=== PATIENT | female | born 1965 | race Caucasian/White ===

== ENCOUNTER 2018-04-16 22:46 | Inpatient (IN) | payer OTHER ==
[2018-04-16 23:35] LABS: ADD MAN DIFF? NO
[2018-04-16 23:39] LABS: WHITE BLOOD COUNT 16.5 10^3/ul (4.8-10.8)
[2018-04-16 23:39] LABS: BASOPHIL # 0.1 10^3/ul (0.0-0.1); BASOPHILS % 0.4 % (0.0-2.0); EOSINOPHILS % 0.1 % (0.0-7.0); HEMATOCRIT 29.6 % (37.0-47.0); HEMOGLOBIN 9.6 g/dl (12.0-16.0); LYMPHOCYTES # 1.3 10^3/ul (0.8-2.9); LYMPHOCYTES % 7.6 % (15.0-51.0); MEAN CORPUSCULAR HEMOGLOBIN 32.4 pg (29.0-33.0); MEAN CORPUSCULAR HGB CONC 32.4 g/dl (32.0-37.0); MEAN PLATELET VOLUME 9.1 fl (7.4-10.4); MONOCYTE # 0.9 10^3/ul (0.3-0.9); MONOCYTES % 5.5 % (0.0-11.0); NEUTROPHIL # 14.1 10^3/ul (1.6-7.5); NEUTROPHILS % 85.5 % (39.0-77.0); PLATELET COUNT 226 10^3/UL (140-415); RED BLOOD COUNT 2.96 10^6/ul (4.20-5.40); RED CELL DISTRIBUTION WIDTH 16.6 % (11.5-14.5)
[2018-04-17] LABS: ALANINE AMINOTRANSFERASE 25 IU/L (13-69); ALBUMIN 3.7 g/dl (3.3-4.9); ALBUMIN/GLOBULIN RATIO 1.15; ALKALINE PHOSPHATASE 92 IU/L (42-121); ANION GAP 15 (5-13); ASPARTATE AMINO TRANSFERASE 32 IU/L (15-46); BILIRUBIN,INDIRECT 0.3 mg/dl (0-1.1); BILIRUBIN,TOTAL 0.3 mg/dl (0.2-1.3); BLOOD UREA NITROGEN 31 mg/dl (7-20); CALCIUM 8.6 mg/dl (8.4-10.2); CARBON DIOXIDE 20 mmol/L (21-31); CHLORIDE 104 mmol/L (97-110); CREATININE 1.31 mg/dl (0.44-1.00); Estimated GFR 42 mL/min (>60); GLUCOSE 110 mg/dl (70-220); LIPASE 31 U/L (23-300); POTASSIUM 5.7 mmol/L (3.5-5.1); SODIUM 139 mmol/L (135-144); TOTAL PROTEIN 6.9 g/dl (6.1-8.1)
[2018-04-17] MEDS: ONDANSETRON 4 MG INJ IV (00:14)
[2018-04-17] MEDS: SOD CHLORIDE 0.9% 1,000 ML IV ×3 (00:14→18:25)
[2018-04-17] MEDS: morphine 2 MG INJ IV (00:14)
[2018-04-17 00:58] LABS: ADD UMIC NO; UR ASCORBIC ACID NEGATIVE (NEGATIVE); UR BILIRUBIN (Dip) NEGATIVE (NEGATIVE); UR BLOOD (Dip) NEGATIVE (NEGATIVE); UR CLARITY CLEAR (CLEAR); UR COLOR YELLOW (YELLOW); UR GLUCOSE (Dip) NEGATIVE (NEGATIVE); UR KETONES (Dip) NEGATIVE (NEGATIVE); UR LEUKOCYTE ESTERASE (Dip) NEGATIVE Leu/ul (NEGATIVE); UR NITRITE (Dip) NEGATIVE (NEGATIVE); UR SPECIFIC GRAVITY (Dip) 1.017 (1.003-1.030); UR TOTAL PROTEIN (Dip) NEGATIVE (NEGATIVE); UR UROBILINOGEN (Dip) NEGATIVE (NEGATIVE)
[2018-04-17 05:06] LABS: ACETAMINOPHEN < 10.0 ug/ml (10.0-30.0)
[2018-04-17 05:06] LABS: ETHANOL < 10.0 mg/dl (0-0); SALICYLATE < 1.0 mg/dl (5.0-30.0)
[2018-04-17] MEDS: LORAZEPAM 2 MG INJ IM (06:04)
[2018-04-17] MEDS ORDERED: ACETAMINOPHEN 325 MG TAB PO (06:30)
[2018-04-17] MEDS ORDERED: NACL 0.9% 3 ML SYG IV (06:30)
[2018-04-17 06:32] LABS: AMPHETAMINE/METHAMPHETAMINE Negative (NEGATIVE); BARBITURATES Negative (NEGATIVE); BENZODIAZEPINES Negative (NEGATIVE); CANNABINOIDS Negative (NEGATIVE); COCAINE Negative (NEGATIVE); OPIATES Negative (NEGATIVE)
[2018-04-17] MEDS: PANTOPRAZOLE 40 MG INJ IV (06:46)
[2018-04-17] MEDS: RISPERIDONE 0.25 MG TAB PO ×2 (06:48→22:08)
[2018-04-17 12:47] LABS: ANION GAP 10 (5-13); BLOOD UREA NITROGEN 30 mg/dl (7-20); CALCIUM 8.2 mg/dl (8.4-10.2); CARBON DIOXIDE 21 mmol/L (21-31); CHLORIDE 107 mmol/L (97-110); CREATININE 1.27 mg/dl (0.44-1.00); Estimated GFR 44 mL/min (>60); GLUCOSE 78 mg/dl (70-220); POTASSIUM 4.5 mmol/L (3.5-5.1); SODIUM 138 mmol/L (135-144)
[2018-04-17] MEDS: HYDROCORTISONE 5 MG TAB PO (21:00)
[2018-04-17] MEDS: FERROUS SULFATE (EC) 325 MG TAB PO (22:08)
[2018-04-17] MEDS: LACOSAMIDE (100 MG/10 ML PO SYR) PO (22:08)
[2018-04-17] MEDS: METOPROLOL 25 MG TAB PO (22:09)
[2018-04-17] MEDS: HEPARIN 5,000 UNIT/1 ML VIAL SC (22:13)
[2018-04-18] MEDS: PANTOPRAZOLE (EC) 40 MG TAB PO (06:01)
[2018-04-18] MEDS: LEVOTHYROXINE 50 MCG TAB PO (06:01)
[2018-04-18 06:30] LABS: ADD MAN DIFF? NO
[2018-04-18 06:34] LABS: BASOPHIL # 0.1 10^3/ul (0.0-0.1); BASOPHILS % 0.5 % (0.0-2.0); EOSINOPHILS # 0.1 10^3/ul (0.0-0.5); EOSINOPHILS % 0.4 % (0.0-7.0); HEMATOCRIT 26.3 % (37.0-47.0); HEMOGLOBIN 8.7 g/dl (12.0-16.0); LYMPHOCYTES # 3.1 10^3/ul (0.8-2.9); LYMPHOCYTES % 22.3 % (15.0-51.0); MEAN CORPUSCULAR HEMOGLOBIN 31.8 pg (29.0-33.0); MEAN CORPUSCULAR HGB CONC 33.1 g/dl (32.0-37.0); MEAN PLATELET VOLUME 9.3 fl (7.4-10.4); MONOCYTE # 1.2 10^3/ul (0.3-0.9); MONOCYTES % 8.3 % (0.0-11.0); NEUTROPHIL # 9.3 10^3/ul (1.6-7.5); PLATELET COUNT 249 10^3/UL (140-415); RED BLOOD COUNT 2.74 10^6/ul (4.20-5.40); RED CELL DISTRIBUTION WIDTH 16.4 % (11.5-14.5)
[2018-04-18 06:34] LABS: WHITE BLOOD COUNT 13.9 10^3/ul (4.8-10.8)
[2018-04-18] MEDS: SOD CHLORIDE 0.9% 1,000 ML IV (07:05)
[2018-04-18 07:15] LABS: ALANINE AMINOTRANSFERASE 32 IU/L (13-69); ALBUMIN 3.2 g/dl (3.3-4.9); ALKALINE PHOSPHATASE 106 IU/L (42-121); ANION GAP 14 (5-13); ASPARTATE AMINO TRANSFERASE 23 IU/L (15-46); BILIRUBIN,INDIRECT 0.1 mg/dl (0-1.1); BILIRUBIN,TOTAL 0.1 mg/dl (0.2-1.3); BLOOD UREA NITROGEN 27 mg/dl (7-20); CALCIUM 8.2 mg/dl (8.4-10.2); CARBON DIOXIDE 17 mmol/L (21-31); CHLORIDE 110 mmol/L (97-110); CHOL/HDL RATIO 2.5 RATIO; CHOLESTEROL 88 mg/dl (100-200); CREATININE 1.28 mg/dl (0.44-1.00); Estimated GFR 43 mL/min (>60); GLUCOSE 92 mg/dl (70-220); HDL CHOLESTEROL 34 mg/dl (37-92); LDL CHOLESTEROL,CALCULATED 23 mg/dl; MAGNESIUM 1.1 mg/dl (1.7-2.5); POTASSIUM 4.1 mmol/L (3.5-5.1); SODIUM 141 mmol/L (135-144); TOTAL PROTEIN 6.1 g/dl (6.1-8.1); TRIGLYCERIDES 156 mg/dl (0-149)
[2018-04-18 07:44] LABS: HEMOGLOBIN A1C 5.1 % (0-5.9)
[2018-04-18 07:51] LABS: HIV 1&2 ANTIBODY NEGATIVE (NEGATIVE)
[2018-04-18] MEDS: NIFEdipine (XL) 60 MG TAB PO (08:58)
[2018-04-18] MEDS: RISPERIDONE 0.25 MG TAB PO ×2 (08:59→21:00)
[2018-04-18] MEDS: FERROUS SULFATE (EC) 325 MG TAB PO ×3 (08:59→21:00)
[2018-04-18] MEDS: HYDROCORTISONE 5 MG TAB PO ×3 (08:59→21:00)
[2018-04-18] MEDS: CHOLECALCIFEROL 1,000 UNIT TAB PO (08:59)
[2018-04-18] MEDS: MULTIVITAMINS THERAPEUTIC TAB PO (08:59)
[2018-04-18] MEDS: METOPROLOL 25 MG TAB PO ×2 (08:59→21:01)
[2018-04-18] MEDS: LACOSAMIDE (100 MG/10 ML PO SYR) PO ×2 (09:00→21:01)
[2018-04-18] MEDS: ATORVASTATIN 40 MG TAB PO (09:00)
[2018-04-18] MEDS: LIDOCAINE 5% PATCH TD (09:00)
[2018-04-18] MEDS: HEPARIN 5,000 UNIT/1 ML VIAL SC ×2 (09:13→21:09)
[2018-04-18] MEDS: MAGNESIUM SULFATE 3 GM in DEXTROSE 5% 100 ML IVPB (12:00)
[2018-04-18] MEDS ORDERED: HYDROCORTISONE 5 MG TAB PO (14:00)
[2018-04-18] MEDS: LACTATED RINGER'S 500 ML IV (14:00)
[2018-04-18 14:21] LABS: IRON 30 ug/dl (35-150)
[2018-04-18 14:30] LABS: % IRON SATURATION 11 % SAT (22-52); TOTAL IRON BINDING CAPACITY 273 ug/dl (241-421)
[2018-04-18 14:39] LABS: FREE T4 (FREE THYROXINE) 1.81 ng/dl (0.64-1.79)
[2018-04-18 14:40] LABS: FREE T3 3.12 pg/ml (2.77-5.27)
[2018-04-18 16:23] LABS: RAPID PLASMA REAGIN NONREACTIVE (NR)
[2018-04-18] MEDS ORDERED: hydrALAzine 20 MG INJ IV (16:30)
[2018-04-18] MEDS: MAGNESIUM OXIDE 400 MG TAB PO ×2 (17:38→21:00)
[2018-04-18 19:46] LABS: ADD UMIC YES; UR ASCORBIC ACID NEGATIVE (NEGATIVE); UR BACTERIA FEW /HPF (NONE SEEN); UR BILIRUBIN (Dip) NEGATIVE (NEGATIVE); UR BLOOD (Dip) 1+ mg/dL (NEGATIVE); UR CLARITY SLIGHTLY CLOUDY (CLEAR); UR COLOR YELLOW (YELLOW); UR GLUCOSE (Dip) NEGATIVE (NEGATIVE); UR KETONES (Dip) NEGATIVE (NEGATIVE); UR LEUKOCYTE ESTERASE (Dip) 1+ Leu/ul (NEGATIVE); UR NITRITE (Dip) NEGATIVE (NEGATIVE); UR RBC 1 /HPF (0-5); UR SPECIFIC GRAVITY (Dip) 1.008 (1.003-1.030); UR TOTAL PROTEIN (Dip) NEGATIVE (NEGATIVE); UR UROBILINOGEN (Dip) NEGATIVE (NEGATIVE); UR WBC 22 /HPF (0-5)
[2018-04-19] MEDS: PANTOPRAZOLE (EC) 40 MG TAB PO (05:23)
[2018-04-19 06:29] LABS: MAGNESIUM 1.3 mg/dl (1.7-2.5)
[2018-04-19 06:31] LABS: ANION GAP 14 (5-13); BLOOD UREA NITROGEN 28 mg/dl (7-20); CARBON DIOXIDE 18 mmol/L (21-31); CHLORIDE 112 mmol/L (97-110); CREATININE 1.35 mg/dl (0.44-1.00); Estimated GFR 41 mL/min (>60); GLUCOSE 97 mg/dl (70-220); POTASSIUM 4.5 mmol/L (3.5-5.1); SODIUM 144 mmol/L (135-144)
[2018-04-19] MEDS: LEVOTHYROXINE 50 MCG TAB PO (07:38)
[2018-04-19] MEDS: LIDOCAINE 5% PATCH TD (09:00)
[2018-04-19] MEDS: HEPARIN 5,000 UNIT/1 ML VIAL SC ×2 (09:00→20:45)
[2018-04-19] MEDS: ATORVASTATIN 40 MG TAB PO (09:09)
[2018-04-19] MEDS: HYDROCORTISONE 5 MG TAB PO ×3 (09:10→20:32)
[2018-04-19] MEDS: FERROUS SULFATE (EC) 325 MG TAB PO ×3 (09:10→20:32)
[2018-04-19] MEDS: RISPERIDONE 0.25 MG TAB PO ×2 (09:10→20:37)
[2018-04-19] MEDS: MAGNESIUM OXIDE 400 MG TAB PO ×2 (09:10→20:32)
[2018-04-19] MEDS: CHOLECALCIFEROL 1,000 UNIT TAB PO (09:10)
[2018-04-19] MEDS: MULTIVITAMINS THERAPEUTIC TAB PO (09:10)
[2018-04-19] MEDS: NIFEdipine (XL) 60 MG TAB PO (09:10)
[2018-04-19] MEDS: METOPROLOL 25 MG TAB PO ×2 (09:11→20:38)
[2018-04-19] MEDS: LACOSAMIDE (100 MG/10 ML PO SYR) PO ×2 (09:11→20:33)
[2018-04-19 12:36] LABS: INR 0.97; PARTIAL THROMBOPLASTIN TIME 34.2 Sec (23.0-35.0)
[2018-04-19 22:46] LABS: SITE Left Upper Forearm
[2018-04-20] MEDS: PANTOPRAZOLE (EC) 40 MG TAB PO (06:07)
[2018-04-20 06:09] LABS: ADD MAN DIFF? NO
[2018-04-20 06:15] LABS: WHITE BLOOD COUNT 11.2 10^3/ul (4.8-10.8)
[2018-04-20 06:15] LABS: BASOPHIL # 0.1 10^3/ul (0.0-0.1); BASOPHILS % 0.5 % (0.0-2.0); EOSINOPHILS # 0.1 10^3/ul (0.0-0.5); EOSINOPHILS % 0.6 % (0.0-7.0); HEMATOCRIT 29.2 % (37.0-47.0); HEMOGLOBIN 9.5 g/dl (12.0-16.0); LYMPHOCYTES # 2.1 10^3/ul (0.8-2.9); LYMPHOCYTES % 18.9 % (15.0-51.0); MEAN CORPUSCULAR HEMOGLOBIN 31.6 pg (29.0-33.0); MEAN CORPUSCULAR HGB CONC 32.5 g/dl (32.0-37.0); MEAN PLATELET VOLUME 9.4 fl (7.4-10.4); MONOCYTE # 1.2 10^3/ul (0.3-0.9); MONOCYTES % 10.5 % (0.0-11.0); NEUTROPHIL # 7.4 10^3/ul (1.6-7.5); NEUTROPHILS % 66.4 % (39.0-77.0); PLATELET COUNT 296 10^3/UL (140-415); RED BLOOD COUNT 3.01 10^6/ul (4.20-5.40); RED CELL DISTRIBUTION WIDTH 15.9 % (11.5-14.5)
[2018-04-20 06:52] LABS: ALANINE AMINOTRANSFERASE 23 IU/L (13-69); ALBUMIN 3.5 g/dl (3.3-4.9); ALBUMIN/GLOBULIN RATIO 1.12; ALKALINE PHOSPHATASE 113 IU/L (42-121); ANION GAP 17 (5-13); ASPARTATE AMINO TRANSFERASE 21 IU/L (15-46); BLOOD UREA NITROGEN 26 mg/dl (7-20); CALCIUM 8.7 mg/dl (8.4-10.2); CARBON DIOXIDE 18 mmol/L (21-31); CHLORIDE 109 mmol/L (97-110); CREATININE 1.48 mg/dl (0.44-1.00); Estimated GFR 37 mL/min (>60); GLUCOSE 97 mg/dl (70-220); POTASSIUM 4.5 mmol/L (3.5-5.1); SODIUM 144 mmol/L (135-144); TOTAL PROTEIN 6.6 g/dl (6.1-8.1)
[2018-04-20] MEDS: HEPARIN 5,000 UNIT/1 ML VIAL SC ×2 (08:49→21:33)
[2018-04-20] MEDS: LIDOCAINE 5% PATCH TD (09:00)
[2018-04-20] MEDS: HYDROCORTISONE 5 MG TAB PO ×3 (09:07→21:09)
[2018-04-20] MEDS: FERROUS SULFATE (EC) 325 MG TAB PO ×3 (09:07→21:05)
[2018-04-20] MEDS: RISPERIDONE 0.25 MG TAB PO ×2 (09:07→21:05)
[2018-04-20] MEDS: CHOLECALCIFEROL 1,000 UNIT TAB PO (09:08)
[2018-04-20] MEDS: LEVOTHYROXINE 50 MCG TAB PO (09:08)
[2018-04-20] MEDS: MULTIVITAMINS THERAPEUTIC TAB PO (09:08)
[2018-04-20] MEDS: ATORVASTATIN 40 MG TAB PO (09:08)
[2018-04-20] MEDS: LACOSAMIDE (100 MG/10 ML PO SYR) PO ×2 (09:08→21:06)
[2018-04-20] MEDS: NIFEdipine (XL) 60 MG TAB PO (09:09)
[2018-04-20] MEDS: METOPROLOL 25 MG TAB PO ×2 (09:09→21:07)
[2018-04-20] MEDS: ONDANSETRON 4 MG INJ IV (10:44)
[2018-04-20] MEDS: MEROPENEM 1 GM/50ML(PMX) 50 ML IVPB (12:24)
[2018-04-20] MEDS: OXCARBAZEPINE 300 MG TAB PO ×3 (13:50→21:05)
[2018-04-20] MEDS: LEVOFLOXACIN 500MG/D5W (PMX) 100 ML IVPB (13:50)
[2018-04-20] MEDS: PROCHLORPERAZINE 10 MG INJ IV (14:13)
[2018-04-20 16:02] LABS: MAGNESIUM 1.4 mg/dl (1.7-2.5)
[2018-04-20] MEDS: LEVOFLOXACIN 500 MG TAB PO (18:48)
[2018-04-21] MEDS: MAGNESIUM SULFATE 4 GM/100 ML 100 ML IVPB (03:21)
[2018-04-21] MEDS: ONDANSETRON 4 MG INJ IV ×2 (03:26→12:57)
[2018-04-21] MEDS: PANTOPRAZOLE (EC) 40 MG TAB PO ×2 (05:26→18:25)
[2018-04-21] MEDS: LEVOTHYROXINE 50 MCG TAB PO (05:28)
[2018-04-21 05:49] LABS: ADD MAN DIFF? NO
[2018-04-21 05:57] LABS: BASOPHIL # 0.1 10^3/ul (0.0-0.1); BASOPHILS % 0.6 % (0.0-2.0); EOSINOPHILS # 0.1 10^3/ul (0.0-0.5); EOSINOPHILS % 0.8 % (0.0-7.0); HEMOGLOBIN 9.2 g/dl (12.0-16.0); LYMPHOCYTES # 2.4 10^3/ul (0.8-2.9); LYMPHOCYTES % 21.6 % (15.0-51.0); MEAN CORPUSCULAR HEMOGLOBIN 31.3 pg (29.0-33.0); MEAN CORPUSCULAR HGB CONC 31.7 g/dl (32.0-37.0); MEAN CORPUSCULAR VOLUME 98.6 fl (82.0-101.0); MEAN PLATELET VOLUME 9.4 fl (7.4-10.4); MONOCYTE # 1.3 10^3/ul (0.3-0.9); MONOCYTES % 11.6 % (0.0-11.0); NEUTROPHIL # 6.7 10^3/ul (1.6-7.5); NEUTROPHILS % 60.7 % (39.0-77.0); PLATELET COUNT 324 10^3/UL (140-415); RED BLOOD COUNT 2.94 10^6/ul (4.20-5.40); RED CELL DISTRIBUTION WIDTH 16.1 % (11.5-14.5)
[2018-04-21 06:17] LABS: ANION GAP 13 (5-13); BLOOD UREA NITROGEN 28 mg/dl (7-20); CALCIUM 9.1 mg/dl (8.4-10.2); CARBON DIOXIDE 18 mmol/L (21-31); CHLORIDE 113 mmol/L (97-110); CREATININE 1.73 mg/dl (0.44-1.00); Estimated GFR 31 mL/min (>60); GLUCOSE 86 mg/dl (70-220); POTASSIUM 4.3 mmol/L (3.5-5.1); SODIUM 144 mmol/L (135-144)
[2018-04-21 06:23] LABS: MAGNESIUM 2.6 mg/dl (1.7-2.5)
[2018-04-21] MEDS: HEPARIN 5,000 UNIT/1 ML VIAL SC ×2 (09:00→21:02)
[2018-04-21] MEDS: LIDOCAINE 5% PATCH TD (10:25)
[2018-04-21] MEDS: LACOSAMIDE (100 MG/10 ML PO SYR) PO ×2 (10:25→21:03)
[2018-04-21] MEDS: FERROUS SULFATE (EC) 325 MG TAB PO ×2 (10:26→13:00)
[2018-04-21] MEDS: NIFEdipine (XL) 60 MG TAB PO (10:26)
[2018-04-21] MEDS: CHOLECALCIFEROL 1,000 UNIT TAB PO (10:26)
[2018-04-21] MEDS: METOPROLOL 25 MG TAB PO ×2 (10:26→21:04)
[2018-04-21] MEDS: OXCARBAZEPINE 300 MG TAB PO ×2 (10:26→21:03)
[2018-04-21] MEDS: ATORVASTATIN 40 MG TAB PO (10:26)
[2018-04-21] MEDS: MULTIVITAMINS THERAPEUTIC TAB PO (10:27)
[2018-04-21] MEDS: RISPERIDONE 0.25 MG TAB PO ×2 (10:27→21:03)
[2018-04-21] MEDS: HYDROCORTISONE 5 MG TAB PO ×3 (10:32→21:03)
[2018-04-21] MEDS: SOD CHLORIDE 0.9% 1,000 ML IV (18:25)
[2018-04-21 22:35] LABS: FORTY EIGHT HOUR READING 0 mm (0-9)
[2018-04-22] MEDS: SOD CHLORIDE 0.9% 1,000 ML IV ×2 (04:56→21:08)
[2018-04-22] MEDS: PANTOPRAZOLE (EC) 40 MG TAB PO ×2 (04:56→17:51)
[2018-04-22] MEDS: LEVOTHYROXINE 50 MCG TAB PO (05:04)
[2018-04-22 05:07] LABS: ADD MAN DIFF? NO
[2018-04-22 05:10] LABS: ABNORMAL IP MESSAGE 1; HEMATOCRIT 27.3 % (37.0-47.0); HEMOGLOBIN 8.9 g/dl (12.0-16.0); MEAN CORPUSCULAR HEMOGLOBIN 31.4 pg (29.0-33.0); MEAN CORPUSCULAR HGB CONC 32.6 g/dl (32.0-37.0); MEAN CORPUSCULAR VOLUME 96.5 fl (82.0-101.0); MEAN PLATELET VOLUME 9.1 fl (7.4-10.4); PLATELET COUNT 311 10^3/UL (140-415); RED BLOOD COUNT 2.83 10^6/ul (4.20-5.40); RED CELL DISTRIBUTION WIDTH 15.9 % (11.5-14.5)
[2018-04-22 05:10] LABS: WHITE BLOOD COUNT 10.9 10^3/ul (4.8-10.8)
[2018-04-22 05:32] LABS: ALANINE AMINOTRANSFERASE 24 IU/L (13-69); ALBUMIN 3.3 g/dl (3.3-4.9); ALBUMIN/GLOBULIN RATIO 1.22; ALKALINE PHOSPHATASE 121 IU/L (42-121); ANION GAP 13 (5-13); ASPARTATE AMINO TRANSFERASE 24 IU/L (15-46); BLOOD UREA NITROGEN 22 mg/dl (7-20); CALCIUM 8.7 mg/dl (8.4-10.2); CARBON DIOXIDE 17 mmol/L (21-31); CHLORIDE 111 mmol/L (97-110); CREATININE 1.55 mg/dl (0.44-1.00); Estimated GFR 35 mL/min (>60); GLUCOSE 80 mg/dl (70-220); POTASSIUM 4.3 mmol/L (3.5-5.1); SODIUM 141 mmol/L (135-144)
[2018-04-22 05:34] LABS: MAGNESIUM 3.1 mg/dl (1.7-2.5)
[2018-04-22 05:51] LABS: POSITIVE DIFF @See below
[2018-04-22 07:53] LABS: ANISOCYTOSIS 1+ (0-0); BAND NEUTROPHILS #M 0.4 10^3/ul (0.0-0.6); BAND NEUTROPHILS % (M) 4 % (0-4); BURR CELLS 1+ (0-0); LYMPHOCYTES #M 2.3 10^3/ul (0.8-2.9); LYMPHOCYTES % (M) 22 % (15-51); MICROCYTOSIS 1+ (0-0); MONOCYTE #M 1.4 10^3/ul (0.3-0.9); MONOCYTES % (M) 13 % (0-11); MYELOCYTES #M 0.1 10^3/ul (0.0-0.0); MYELOCYTES % (M) 1 % (0-0); OVALOCYTES 1+ (0-0); PLATELET ESTIMATE NORMAL; POIKILOCYTOSIS 1+ (0-0); POLYCHROMASIA 3+ (0-0); PROMYELOCYTES #M 0.1 10^3/ul (0-0); PROMYELOCYTES % (M) 1 % (0-0); SEG NEUT #M 6.5 10^3/ul (1.6-7.5); SEGMENTED NEUTROPHILS (M) % 59 % (39-77); SMUDGE%M 1 % (0-0)
[2018-04-22] MEDS: HEPARIN 5,000 UNIT/1 ML VIAL SC ×2 (08:58→20:44)
[2018-04-22] MEDS: NIFEdipine (XL) 60 MG TAB PO (08:59)
[2018-04-22] MEDS: OXCARBAZEPINE 300 MG TAB PO ×2 (08:59→20:43)
[2018-04-22] MEDS: RISPERIDONE 0.25 MG TAB PO ×2 (08:59→20:42)
[2018-04-22] MEDS: ATORVASTATIN 40 MG TAB PO (08:59)
[2018-04-22] MEDS: METOPROLOL 25 MG TAB PO ×2 (08:59→20:43)
[2018-04-22] MEDS: HYDROCORTISONE 5 MG TAB PO ×3 (08:59→20:42)
[2018-04-22] MEDS: LACOSAMIDE (100 MG/10 ML PO SYR) PO ×2 (09:00→20:43)
[2018-04-22] MEDS: LIDOCAINE 5% PATCH TD (09:00)
[2018-04-22 14:49] LABS: HEPATITIS B SURFACE ANTIGEN NEGATIVE (NEGATIVE)
[2018-04-22 15:06] LABS: HEPATITIS C VIRAL ANTIBODY NEGATIVE (NEGATIVE)
[2018-04-22] MEDS: LEVOFLOXACIN 500MG/D5W (PMX) 100 ML IVPB (15:43)
[2018-04-22 18:51] LABS: NIL 0.06 IU/mL; QUANTIFERON(R)-TB GOLD NEGATIVE (NEGATIVE); TB-NIL 0.01 IU/mL
[2018-04-22 22:21] LABS: SEVENTY TWO HOUR READING 0 mm (0-9)
[2018-04-23 05:52] LABS: ADD MAN DIFF? NO
[2018-04-23] MEDS: LEVOTHYROXINE 50 MCG TAB PO (06:05)
[2018-04-23] MEDS: PANTOPRAZOLE (EC) 40 MG TAB PO ×2 (06:05→17:39)
[2018-04-23 06:22] LABS: BASOPHIL # 0.1 10^3/ul (0.0-0.1); BASOPHILS % 0.5 % (0.0-2.0); EOSINOPHILS # 0.1 10^3/ul (0.0-0.5); EOSINOPHILS % 1.5 % (0.0-7.0); HEMATOCRIT 23.4 % (37.0-47.0); HEMOGLOBIN 7.6 g/dl (12.0-16.0); LYMPHOCYTES # 2.1 10^3/ul (0.8-2.9); LYMPHOCYTES % 21.8 % (15.0-51.0); MEAN CORPUSCULAR HEMOGLOBIN 31.3 pg (29.0-33.0); MEAN CORPUSCULAR HGB CONC 32.5 g/dl (32.0-37.0); MEAN CORPUSCULAR VOLUME 96.3 fl (82.0-101.0); MEAN PLATELET VOLUME 9.3 fl (7.4-10.4); MONOCYTES % 10.7 % (0.0-11.0); NEUTROPHIL # 5.9 10^3/ul (1.6-7.5); NEUTROPHILS % 61.6 % (39.0-77.0); PLATELET COUNT 279 10^3/UL (140-415); RED BLOOD COUNT 2.43 10^6/ul (4.20-5.40); RED CELL DISTRIBUTION WIDTH 15.4 % (11.5-14.5)
[2018-04-23 06:22] LABS: WHITE BLOOD COUNT 9.5 10^3/ul (4.8-10.8)
[2018-04-23 06:39] LABS: ALANINE AMINOTRANSFERASE 29 IU/L (13-69); ALBUMIN 2.7 g/dl (3.3-4.9); ALBUMIN/GLOBULIN RATIO 1.03; ALKALINE PHOSPHATASE 86 IU/L (42-121); ANION GAP 15 (5-13); ASPARTATE AMINO TRANSFERASE 30 IU/L (15-46); BLOOD UREA NITROGEN 13 mg/dl (7-20); CALCIUM 8.1 mg/dl (8.4-10.2); CARBON DIOXIDE 16 mmol/L (21-31); CHLORIDE 111 mmol/L (97-110); CREATININE 1.22 mg/dl (0.44-1.00); Estimated GFR 46 mL/min (>60); GLUCOSE 68 mg/dl (70-220); POTASSIUM 3.4 mmol/L (3.5-5.1); SODIUM 142 mmol/L (135-144); TOTAL PROTEIN 5.3 g/dl (6.1-8.1)
[2018-04-23] MEDS: SOD CHLORIDE 0.9% 1,000 ML IV (08:50)
[2018-04-23] MEDS: HYDROCORTISONE 5 MG TAB PO ×3 (08:51→22:32)
[2018-04-23] MEDS: ATORVASTATIN 40 MG TAB PO (08:52)
[2018-04-23] MEDS: OXCARBAZEPINE 300 MG TAB PO ×2 (08:52→22:32)
[2018-04-23] MEDS: LACOSAMIDE (100 MG/10 ML PO SYR) PO ×2 (08:52→22:32)
[2018-04-23] MEDS: METOPROLOL 25 MG TAB PO ×2 (08:52→22:32)
[2018-04-23] MEDS: RISPERIDONE 0.25 MG TAB PO ×2 (08:52→22:33)
[2018-04-23] MEDS: NIFEdipine (XL) 60 MG TAB PO (08:52)
[2018-04-23] MEDS: HEPARIN 5,000 UNIT/1 ML VIAL SC (08:54)
[2018-04-23] MEDS: LIDOCAINE 5% PATCH TD (08:58)
[2018-04-23] MEDS: ENOXAPARIN 40 MG/0.4 ML SYG SC (12:00)
[2018-04-23] MEDS: SENNA/DOCUSATE NA (8.6MG/50MG) TAB PO (22:31)
[2018-04-23] MEDS: LACTOBACILLUS RHAMNOSUS CAP PO (22:31)
[2018-04-24] MEDS: SOD CHLORIDE 0.9% 1,000 ML IV (04:10)
[2018-04-24] MEDS: ONDANSETRON 4 MG INJ IV (04:16)
[2018-04-24] MEDS: PANTOPRAZOLE (EC) 40 MG TAB PO ×2 (06:23→18:28)
[2018-04-24] MEDS: LEVOTHYROXINE 50 MCG TAB PO (06:23)
[2018-04-24] MEDS: LIDOCAINE 5% PATCH TD (09:00)
[2018-04-24] MEDS: HYDROCORTISONE 5 MG TAB PO ×3 (09:02→20:57)
[2018-04-24] MEDS: OXCARBAZEPINE 300 MG TAB PO ×2 (09:02→20:56)
[2018-04-24] MEDS: RISPERIDONE 0.25 MG TAB PO ×2 (09:02→20:57)
[2018-04-24] MEDS: LACOSAMIDE (100 MG/10 ML PO SYR) PO ×2 (09:02→20:57)
[2018-04-24] MEDS: LACTOBACILLUS RHAMNOSUS CAP PO ×2 (09:03→20:57)
[2018-04-24] MEDS: CHOLECALCIFEROL 1,000 UNIT TAB PO (09:03)
[2018-04-24] MEDS: ATORVASTATIN 40 MG TAB PO (09:03)
[2018-04-24] MEDS: MULTIVITAMINS THERAPEUTIC TAB PO (09:03)
[2018-04-24] MEDS: METOPROLOL 25 MG TAB PO ×2 (09:04→20:56)
[2018-04-24] MEDS: NIFEdipine (XL) 60 MG TAB PO (09:05)
[2018-04-24] MEDS: ENOXAPARIN 40 MG/0.4 ML SYG SC (09:06)
[2018-04-24] MEDS: LEVOFLOXACIN 500 MG TAB PO (16:55)
[2018-04-24] MEDS: SENNA/DOCUSATE NA (8.6MG/50MG) TAB PO (20:57)
[2018-04-25] MEDS: PANTOPRAZOLE (EC) 40 MG TAB PO ×2 (06:24→17:22)
[2018-04-25] MEDS: LEVOTHYROXINE 50 MCG TAB PO (06:24)
[2018-04-25] MEDS: LACOSAMIDE (100 MG/10 ML PO SYR) PO (08:14)
[2018-04-25] MEDS: RISPERIDONE 0.25 MG TAB PO (08:14)
[2018-04-25] MEDS: NIFEdipine (XL) 60 MG TAB PO (08:14)
[2018-04-25] MEDS: OXCARBAZEPINE 300 MG TAB PO (08:14)
[2018-04-25] MEDS: MULTIVITAMINS THERAPEUTIC TAB PO (08:15)
[2018-04-25] MEDS: CHOLECALCIFEROL 1,000 UNIT TAB PO (08:15)
[2018-04-25] MEDS: ATORVASTATIN 40 MG TAB PO (08:15)
[2018-04-25] MEDS: METOPROLOL 25 MG TAB PO (08:15)
[2018-04-25] MEDS: LACTOBACILLUS RHAMNOSUS CAP PO (08:15)
[2018-04-25] MEDS: HYDROCORTISONE 5 MG TAB PO ×2 (08:18→16:42)
[2018-04-25] MEDS: ENOXAPARIN 40 MG/0.4 ML SYG SC (08:20)
[2018-04-25] MEDS: LIDOCAINE 5% PATCH TD (08:21)
[2018-04-25] MEDS: ONDANSETRON 4 MG INJ IV (10:02)
[2018-04-25] MEDS ORDERED: METOPROLOL 50 MG TAB PO (21:00)
[2018-04-26] MEDS ORDERED: NIFEdipine (XL) 90 MG TAB PO (09:00)
[2018-04-28] MEDS ORDERED: FERROUS SULFATE (EC) 325 MG TAB PO (21:00)
== END 2018-04-25 17:34 | disposition home health service (06) | DRG 391 ==
LOC: E/R 22:46 → PP2 04-18 22:12 → TEL 04-17 05:59
DX: R11.10 Vomiting, unspecified (principal); G93.41 Metabolic encephalopathy; E27.40 Unspecified adrenocortical insufficiency; N17.9 Acute kidney failure, unspecified; R44.3 Hallucinations, unspecified; N30.90 Cystitis, unspecified without hematuria; E87.5 Hyperkalemia; S72.012D Unspecified intracapsular fracture of left femur, subsequent encounter for closed fracture with routine healing; I12.9 Hypertensive chronic kidney disease with stage 1 through stage 4 chronic kidney disease, or unspecified chronic kidney disease; N18.3 Chronic kidney disease, stage 3 (moderate); Z86.73 Personal history of transient ischemic attack (TIA), and cerebral infarction without residual deficits; E78.5 Hyperlipidemia, unspecified; E03.9 Hypothyroidism, unspecified; D64.9 Anemia, unspecified; Z87.81 Personal history of (healed) traumatic fracture; K59.00 Constipation, unspecified; S32.9XXD Fracture of unspecified parts of lumbosacral spine and pelvis, subsequent encounter for fracture with routine healing; W19.XXXD Unspecified fall, subsequent encounter; M48.56XD Collapsed vertebra, not elsewhere classified, lumbar region, subsequent encounter for fracture with routine healing; B96.20 Unspecified Escherichia coli [E. coli] as the cause of diseases classified elsewhere; G40.909 Epilepsy, unspecified, not intractable, without status epilepticus; M81.8 Other osteoporosis without current pathological fracture
CPT/HCPCS: 36415; 70450; 70551; 70552; 71045; 72170; 73510; 74176; 80048; 80053; 80061; 80307; 81001; 81003; 82533; 82607; 83015; 83036; 83540; 83690; 83735; 84100; 84439; 84443; 84481; 85025; 85610; 85730; 86480; 86580; 86592; 86703; 86803; 87040; 87086; 87340; 95819; 96374; 96375; 97110; 97116; 97161; 97530; 99285-25

== ENCOUNTER 2018-04-27 06:33 | Inpatient (IN) | payer OTHER ==
[2018-04-27] MEDS: HYDROmorphONE 0.5 MG/0.5 ML SYG IM (07:47)
[2018-04-27] MEDS: ACETAMINOPHEN 325 MG TAB PO ×3 (07:49→23:20)
[2018-04-27] MEDS: SODIUM CHLORIDE 0.9% 1L BAG IV* (07:49)
[2018-04-27] MEDS: CEFEPIME 2GM/50 ML (PMX) 50 ML IVPB (08:23)
[2018-04-27 08:39] LABS: ABNORMAL IP MESSAGE 1; HEMATOCRIT 30.7 % (37.0-47.0); MEAN CORPUSCULAR HEMOGLOBIN 31.6 pg (29.0-33.0); MEAN CORPUSCULAR HGB CONC 32.6 g/dl (32.0-37.0); MEAN CORPUSCULAR VOLUME 97.2 fl (82.0-101.0); MEAN PLATELET VOLUME 9.1 fl (7.4-10.4); PLATELET COUNT 273 10^3/UL (140-415); RED BLOOD COUNT 3.16 10^6/ul (4.20-5.40); RED CELL DISTRIBUTION WIDTH 16.3 % (11.5-14.5)
[2018-04-27 08:48] LABS: ADD MAN DIFF? YES; POSITIVE DIFF @See below
[2018-04-27 08:54] LABS: ALANINE AMINOTRANSFERASE 20 IU/L (13-69); ALBUMIN 3.5 g/dl (3.3-4.9); ALBUMIN/GLOBULIN RATIO 1.25; ALKALINE PHOSPHATASE 98 IU/L (42-121); ANION GAP 13 (5-13); ASPARTATE AMINO TRANSFERASE 43 IU/L (15-46); BLOOD UREA NITROGEN 17 mg/dl (7-20); CALCIUM 8.2 mg/dl (8.4-10.2); CARBON DIOXIDE 14 mmol/L (21-31); CHLORIDE 112 mmol/L (97-110); CREATININE 1.25 mg/dl (0.44-1.00); Estimated GFR 45 mL/min (>60); GLUCOSE 88 mg/dl (70-220); SODIUM 139 mmol/L (135-144); TOTAL PROTEIN 6.3 g/dl (6.1-8.1)
[2018-04-27 08:57] LABS: INR 0.98; PROTIME 13.1 Sec (11.9-14.9)
[2018-04-27 08:58] LABS: PARTIAL THROMBOPLASTIN TIME 29.2 Sec (23.0-35.0)
[2018-04-27 09:04] LABS: TROPONIN-I < 0.012 ng/ml (0.000-0.120)
[2018-04-27 09:15] LABS: C-REACTIVE PROTEIN 4.4 mg/dl (0.0-0.9)
[2018-04-27] MEDS: VANCOMYCIN 1 GM (PMX) 250 ML IVPB (09:29)
[2018-04-27] MEDS: LIDOCAINE 1% (MPF) 5 ML VIAL SC (09:53)
[2018-04-27 10:26] LABS: ADD UMIC NO; UR ASCORBIC ACID NEGATIVE (NEGATIVE); UR BILIRUBIN (Dip) NEGATIVE (NEGATIVE); UR BLOOD (Dip) NEGATIVE (NEGATIVE); UR CLARITY CLEAR (CLEAR); UR COLOR YELLOW (YELLOW); UR GLUCOSE (Dip) NEGATIVE (NEGATIVE); UR KETONES (Dip) NEGATIVE (NEGATIVE); UR LEUKOCYTE ESTERASE (Dip) NEGATIVE Leu/ul (NEGATIVE); UR NITRITE (Dip) NEGATIVE (NEGATIVE); UR SPECIFIC GRAVITY (Dip) 1.013 (1.003-1.030); UR TOTAL PROTEIN (Dip) NEGATIVE (NEGATIVE); UR UROBILINOGEN (Dip) NEGATIVE (NEGATIVE)
[2018-04-27 11:07] LABS: ANISOCYTOSIS 1+ (0-0); BAND NEUTROPHILS #M 2.5 10^3/ul (0.0-0.6); BAND NEUTROPHILS % (M) 7 % (0-4); LYMPHOCYTES #M 3.3 10^3/ul (0.8-2.9); LYMPHOCYTES % (M) 9 % (15-51); MONOCYTE #M 0.3 10^3/ul (0.3-0.9); MONOCYTES % (M) 1 % (0-11); PLATELET ESTIMATE NORMAL; POIKILOCYTOSIS 1+ (0-0); POLYCHROMASIA 2+ (0-0); RBC MORPHOLOGY COMMENT @See below; REACTIVE LYMPHOCYTES #M 3.3 10^3/ul (0.0-0.0); REACTIVE LYMPHOCYTES% (M) 9 % (0-0); SEG NEUT #M 28.3 10^3/ul (1.6-7.5); SEGMENTED NEUTROPHILS (M) % 74 % (39-77); SMUDGE%M 5 % (0-0); WBC MORPHOLOGY COMMENT @See below
[2018-04-27] MEDS: HYDROmorphONE 0.5 MG/0.5 ML SYG IV (11:10)
[2018-04-27 11:46] LABS: LACTIC ACID 1.6 mmol/L (0.5-2.0)
[2018-04-27] MEDS ORDERED: NACL 0.9% 3 ML SYG IV (13:30)
[2018-04-27] MEDS ORDERED: ACETAMINOPHEN 650 MG SUPP PR (13:30)
[2018-04-27] MEDS: morphine 4 MG/ML VIAL IV ×3 (14:18→22:41)
[2018-04-27] MEDS: SOD CHLORIDE 0.9% 1,000 ML IV (14:20)
[2018-04-27] MEDS: LABETALOL HCL 20MG INJ IV (15:58)
[2018-04-27] MEDS: HYDROmorphONE 2 MG/ML SYG IV (16:09)
[2018-04-27] MEDS: PANTOPRAZOLE (EC) 40 MG TAB PO (17:54)
[2018-04-27] MEDS: CLONIDINE 0.1 MG/24 HR PATCH TRANSDERM (17:54)
[2018-04-27] MEDS: DICLOFENAC SODIUM 1% GEL 100 GM TUBE TP ×2 (17:54→20:23)
[2018-04-27] MEDS: LACOSAMIDE (100 MG/10 ML PO SYR) PO (20:21)
[2018-04-27] MEDS: OXCARBAZEPINE 300 MG TAB PO (20:22)
[2018-04-27] MEDS: RISPERIDONE 0.25 MG TAB PO (20:22)
[2018-04-27] MEDS: LACTOBACILLUS RHAMNOSUS CAP PO (20:22)
[2018-04-27] MEDS: ZOLPIDEM 5 MG TAB PO (20:22)
[2018-04-27] MEDS: SENNA/DOCUSATE NA (8.6MG/50MG) TAB PO (20:22)
[2018-04-28] MEDS: IBUPROFEN 600 MG TAB PO (01:08)
[2018-04-28] MEDS: morphine 4 MG/ML VIAL IV ×3 (04:13→16:06)
[2018-04-28] MEDS: ONDANSETRON 4 MG INJ IV ×2 (05:37→08:53)
[2018-04-28] MEDS: PANTOPRAZOLE (EC) 40 MG TAB PO ×2 (05:37→17:32)
[2018-04-28 06:19] LABS: WHITE BLOOD COUNT 51.5 10^3/ul (4.8-10.8)
[2018-04-28 06:19] LABS: ABNORMAL IP MESSAGE 1; HEMATOCRIT 27.2 % (37.0-47.0); HEMOGLOBIN 8.7 g/dl (12.0-16.0); MEAN CORPUSCULAR HEMOGLOBIN 31.9 pg (29.0-33.0); MEAN CORPUSCULAR VOLUME 99.6 fl (82.0-101.0); MEAN PLATELET VOLUME 9.3 fl (7.4-10.4); PLATELET COUNT 245 10^3/UL (140-415); RED BLOOD COUNT 2.73 10^6/ul (4.20-5.40); RED CELL DISTRIBUTION WIDTH 17.2 % (11.5-14.5)
[2018-04-28 06:30] LABS: POSITIVE DIFF @See below
[2018-04-28 06:31] LABS: ADD MAN DIFF? YES
[2018-04-28 06:41] LABS: ANION GAP 8 (5-13); BLOOD UREA NITROGEN 22 mg/dl (7-20); CALCIUM 6.9 mg/dl (8.4-10.2); CARBON DIOXIDE 11 mmol/L (21-31); CHLORIDE 120 mmol/L (97-110); CREATININE 1.95 mg/dl (0.44-1.00); Estimated GFR 27 mL/min (>60); GLUCOSE 74 mg/dl (70-220); POTASSIUM 4.2 mmol/L (3.5-5.1); SODIUM 139 mmol/L (135-144)
[2018-04-28] MEDS: LEVOTHYROXINE 50 MCG TAB PO (06:42)
[2018-04-28] MEDS: SOD CHLORIDE 0.9% 1,000 ML IV ×2 (06:50→16:02)
[2018-04-28 06:51] LABS: CREATINE KINASE 85 IU/L (23-200)
[2018-04-28 07:39] LABS: BAND NEUTROPHILS #M 5.1 10^3/ul (0.0-0.6); BAND NEUTROPHILS % (M) 10 % (0-4); BURR CELLS 1+ (0-0); LYMPHOCYTES % (M) 6 % (15-51); MONOCYTE #M 0.5 10^3/ul (0.3-0.9); MONOCYTES % (M) 1 % (0-11); PLATELET ESTIMATE NORMAL; POIKILOCYTOSIS 1+ (0-0); SEG NEUT #M 45.4 10^3/ul (1.6-7.5); SEGMENTED NEUTROPHILS (M) % 83 % (39-77); SMUDGE%M 7 % (0-0)
[2018-04-28 07:56] LABS: TROPONIN-I 0.033 ng/ml (0.000-0.120)
[2018-04-28] MEDS: LACTOBACILLUS RHAMNOSUS CAP PO ×2 (08:46→20:40)
[2018-04-28] MEDS: OXCARBAZEPINE 300 MG TAB PO ×2 (08:46→20:40)
[2018-04-28] MEDS: LACOSAMIDE (100 MG/10 ML PO SYR) PO ×2 (08:46→20:48)
[2018-04-28] MEDS: RISPERIDONE 0.25 MG TAB PO ×2 (08:46→20:41)
[2018-04-28] MEDS: NIFEdipine (XL) 90 MG TAB PO (08:46)
[2018-04-28] MEDS: FAMOTIDINE 20 MG INJ IV (08:46)
[2018-04-28] MEDS: LIDOCAINE 5% PATCH TRANSDERM (08:48)
[2018-04-28] MEDS: DICLOFENAC SODIUM 1% GEL 100 GM TUBE TP ×4 (08:48→20:41)
[2018-04-28] MEDS: ENOXAPARIN 40 MG/0.4 ML SYG SC (09:10)
[2018-04-28] MEDS: HYDROCODONE/APAP (5/325) TAB PO (13:10)
[2018-04-28] MEDS: SENNA/DOCUSATE NA (8.6MG/50MG) TAB PO (20:41)
[2018-04-29] MEDS: HYDROCODONE/APAP (5/325) TAB PO (05:19)
[2018-04-29] MEDS: PANTOPRAZOLE (EC) 40 MG TAB PO ×2 (05:19→18:01)
[2018-04-29] MEDS: LEVOTHYROXINE 50 MCG TAB PO (06:09)
[2018-04-29] MEDS: RISPERIDONE 0.25 MG TAB PO ×2 (08:53→20:04)
[2018-04-29] MEDS: OXCARBAZEPINE 300 MG TAB PO ×2 (08:53→20:03)
[2018-04-29] MEDS: LACTOBACILLUS RHAMNOSUS CAP PO ×2 (08:53→21:00)
[2018-04-29] MEDS: ONDANSETRON 4 MG INJ IV (08:54)
[2018-04-29] MEDS: FAMOTIDINE 20 MG INJ IV (08:57)
[2018-04-29] MEDS: LACOSAMIDE (100 MG/10 ML PO SYR) PO ×2 (08:58→20:04)
[2018-04-29] MEDS: NIFEdipine (XL) 90 MG TAB PO (09:00)
[2018-04-29] MEDS: ENOXAPARIN 40 MG/0.4 ML SYG SC (09:08)
[2018-04-29 09:42] LABS: ABNORMAL IP MESSAGE 1; HEMATOCRIT 20.7 % (37.0-47.0); MEAN CORPUSCULAR HEMOGLOBIN 31.3 pg (29.0-33.0); MEAN CORPUSCULAR HGB CONC 31.9 g/dl (32.0-37.0); MEAN CORPUSCULAR VOLUME 98.1 fl (82.0-101.0); MEAN PLATELET VOLUME 9.6 fl (7.4-10.4); PLATELET COUNT 189 10^3/UL (140-415); RED BLOOD COUNT 2.11 10^6/ul (4.20-5.40); RED CELL DISTRIBUTION WIDTH 17.2 % (11.5-14.5)
[2018-04-29 09:42] LABS: WHITE BLOOD COUNT 26.7 10^3/ul (4.8-10.8)
[2018-04-29 09:48] LABS: POSITIVE DIFF @See below
[2018-04-29 09:50] LABS: HEMOGLOBIN 6.6 g/dl (12.0-16.0)
[2018-04-29 09:51] LABS: ADD MAN DIFF? YES
[2018-04-29] MEDS: DICLOFENAC SODIUM 1% GEL 100 GM TUBE TP ×4 (09:55→20:04)
[2018-04-29] MEDS: LIDOCAINE 5% PATCH TRANSDERM (09:55)
[2018-04-29 10:11] LABS: PHOSPHORUS 4.1 mg/dl (2.5-4.9)
[2018-04-29 10:16] LABS: MAGNESIUM 0.8 mg/dl (1.7-2.5)
[2018-04-29 10:21] LABS: ANION GAP 8 (5-13); BLOOD UREA NITROGEN 21 mg/dl (7-20); CALCIUM 6.9 mg/dl (8.4-10.2); CARBON DIOXIDE 11 mmol/L (21-31); CHLORIDE 123 mmol/L (97-110); CREATININE 1.93 mg/dl (0.44-1.00); Estimated GFR 27 mL/min (>60); GLUCOSE 56 mg/dl (70-220); POTASSIUM 3.4 mmol/L (3.5-5.1); SODIUM 142 mmol/L (135-144)
[2018-04-29 10:26] LABS: ANISOCYTOSIS 1+ (0-0); BAND NEUTROPHILS #M 3.7 10^3/ul (0.0-0.6); BAND NEUTROPHILS % (M) 14 % (0-4); BURR CELLS 2+ (0-0); LYMPHOCYTES #M 1.3 10^3/ul (0.8-2.9); LYMPHOCYTES % (M) 5 % (15-51); MONOCYTE #M 0.2 10^3/ul (0.3-0.9); MONOCYTES % (M) 1 % (0-11); PLATELET ESTIMATE NORMAL; POIKILOCYTOSIS 3+ (0-0); POLYCHROMASIA 3+ (0-0); SEG NEUT #M 22.3 10^3/ul (1.6-7.5); SEGMENTED NEUTROPHILS (M) % 80 % (39-77); SMUDGE%M 1 % (0-0)
[2018-04-29] MEDS: ALTEPLASE (CATHFLO) 2 MG INJ CATHETER (10:55)
[2018-04-29 11:54] LABS: HEMATOCRIT 22.5 % (37.0-47.0); HEMOGLOBIN 7.2 g/dl (12.0-16.0)
[2018-04-29 12:10] LABS: ANION GAP 11 (5-13); BLOOD UREA NITROGEN 21 mg/dl (7-20); CALCIUM 7.2 mg/dl (8.4-10.2); CARBON DIOXIDE 12 mmol/L (21-31); CHLORIDE 119 mmol/L (97-110); CREATININE 1.93 mg/dl (0.44-1.00); Estimated GFR 27 mL/min (>60); GLUCOSE 77 mg/dl (70-220); POTASSIUM 3.3 mmol/L (3.5-5.1); SODIUM 142 mmol/L (135-144)
[2018-04-29 12:24] LABS: MAGNESIUM 0.9 mg/dl (1.7-2.5)
[2018-04-29] MEDS: SOD CHLORIDE 0.9% 250 ML IV* (12:30)
[2018-04-29] MEDS: POTASSIUM CHLORIDE (SR) 20 MEQ TAB PO (13:16)
[2018-04-29] MEDS ORDERED: VANCOMYCIN IV PER PHARMACY XX (15:00)
[2018-04-29] MEDS: MAGNESIUM SULFATE 4 GM/100 ML 100 ML IVPB (16:04)
[2018-04-29] MEDS ORDERED: CEFEPIME 1GM/50 ML (PMX) 50 ML IVPB (16:30)
[2018-04-29] MEDS ORDERED: VANCOMYCIN 1 GM 250 ML IVPB (16:30)
[2018-04-29] MEDS: SENNA/DOCUSATE NA (8.6MG/50MG) TAB PO (20:04)
[2018-04-29] MEDS ORDERED: VANCOMYCIN 1 GM (PMX) 250 ML IVPB (20:30)
[2018-04-29] MEDS: CEFEPIME 1GM/50 ML (PMX) 50 ML IVPB (22:06)
[2018-04-29 23:07] LABS: IMMEDIATE SPIN CROSSMATCH 1 1
[2018-04-29] MEDS: SOD CHLORIDE 0.9% 1,000 ML IV (23:16)
[2018-04-30] MEDS: VANCOMYCIN 1 GM 250 ML IVPB (01:42)
[2018-04-30 06:07] LABS: ADD MAN DIFF? NO
[2018-04-30 06:19] LABS: BASOPHIL # 0.1 10^3/ul (0.0-0.1); BASOPHILS % 0.3 % (0.0-2.0); EOSINOPHILS # 0.1 10^3/ul (0.0-0.5); EOSINOPHILS % 0.3 % (0.0-7.0); HEMATOCRIT 28.9 % (37.0-47.0); HEMOGLOBIN 9.2 g/dl (12.0-16.0); LYMPHOCYTES # 1.4 10^3/ul (0.8-2.9); LYMPHOCYTES % 6.8 % (15.0-51.0); MEAN CORPUSCULAR HEMOGLOBIN 31.4 pg (29.0-33.0); MEAN CORPUSCULAR HGB CONC 31.8 g/dl (32.0-37.0); MEAN CORPUSCULAR VOLUME 98.6 fl (82.0-101.0); MEAN PLATELET VOLUME 9.4 fl (7.4-10.4); MONOCYTES % 5.1 % (0.0-11.0); NEUTROPHIL # 17.1 10^3/ul (1.6-7.5); NEUTROPHILS % 85.6 % (39.0-77.0); NUCLEATED RED BLOOD CELLS% 0.1 /100WBC (0.0-0.0); PLATELET COUNT 152 10^3/UL (140-415); RED BLOOD COUNT 2.93 10^6/ul (4.20-5.40); RED CELL DISTRIBUTION WIDTH 16.7 % (11.5-14.5)
[2018-04-30 06:25] LABS: POSITIVE DIFF @See below
[2018-04-30] MEDS: PANTOPRAZOLE (EC) 40 MG TAB PO ×2 (06:27→18:23)
[2018-04-30] MEDS: LEVOTHYROXINE 50 MCG TAB PO (06:27)
[2018-04-30 06:34] LABS: PHOSPHORUS 3.4 mg/dl (2.5-4.9)
[2018-04-30 06:34] LABS: MAGNESIUM 2.6 mg/dl (1.7-2.5)
[2018-04-30 06:46] LABS: ANION GAP 8 (5-13); BLOOD UREA NITROGEN 15 mg/dl (7-20); CALCIUM 7.8 mg/dl (8.4-10.2); CARBON DIOXIDE 11 mmol/L (21-31); CHLORIDE 123 mmol/L (97-110); CREATININE 1.53 mg/dl (0.44-1.00); Estimated GFR 35 mL/min (>60); GLUCOSE 109 mg/dl (70-220); POTASSIUM 4.3 mmol/L (3.5-5.1); SODIUM 142 mmol/L (135-144)
[2018-04-30] MEDS: morphine 4 MG/ML VIAL IV (06:52)
[2018-04-30] MEDS: OXCARBAZEPINE 300 MG TAB PO ×2 (09:52→21:31)
[2018-04-30] MEDS: LACOSAMIDE (100 MG/10 ML PO SYR) PO ×2 (09:53→21:31)
[2018-04-30] MEDS: FAMOTIDINE 20 MG INJ IV (09:53)
[2018-04-30] MEDS: NIFEdipine (XL) 90 MG TAB PO (09:53)
[2018-04-30] MEDS: LACTOBACILLUS RHAMNOSUS CAP PO ×2 (09:53→21:31)
[2018-04-30] MEDS: RISPERIDONE 0.25 MG TAB PO ×2 (09:54→21:31)
[2018-04-30] MEDS: DICLOFENAC SODIUM 1% GEL 100 GM TUBE TP ×4 (09:55→21:32)
[2018-04-30] MEDS: ENOXAPARIN 40 MG/0.4 ML SYG SC (09:58)
[2018-04-30] MEDS: LIDOCAINE 5% PATCH TRANSDERM (10:09)
[2018-04-30] MEDS: BALSAM PERU/CASTOR OIL 60 GM TUBE TOP ×2 (14:15→21:32)
[2018-04-30] MEDS: SOD CHLORIDE 0.9% 1,000 ML IV (21:30)
[2018-04-30] MEDS: CEFEPIME 1GM/50 ML (PMX) 50 ML IVPB (21:31)
[2018-04-30] MEDS: SENNA/DOCUSATE NA (8.6MG/50MG) TAB PO (21:31)
[2018-04-30] MEDS ORDERED: VANCOMYCIN 1 GM 250 ML IVPB (22:00)
[2018-05-01] MEDS: VANCOMYCIN 500 MG (PMX) 100 ML IVPB (01:09)
[2018-05-01] MEDS: LEVOTHYROXINE 50 MCG TAB PO (06:33)
[2018-05-01] MEDS: PANTOPRAZOLE (EC) 40 MG TAB PO ×2 (06:33→17:10)
[2018-05-01] MEDS: HYDROCODONE/APAP (5/325) TAB PO ×2 (07:34→18:10)
[2018-05-01 08:27] LABS: HEMATOCRIT 28.8 % (37.0-47.0); HEMOGLOBIN 9.5 g/dl (12.0-16.0); MEAN CORPUSCULAR HEMOGLOBIN 31.4 pg (29.0-33.0); MEAN PLATELET VOLUME 9.4 fl (7.4-10.4); PLATELET COUNT 204 10^3/UL (140-415); RED BLOOD COUNT 3.03 10^6/ul (4.20-5.40); RED CELL DISTRIBUTION WIDTH 17.1 % (11.5-14.5)
[2018-05-01] MEDS: OXCARBAZEPINE 300 MG TAB PO ×2 (08:32→20:40)
[2018-05-01] MEDS: RISPERIDONE 0.25 MG TAB PO ×2 (08:32→20:39)
[2018-05-01] MEDS: FAMOTIDINE 20 MG TAB PO (08:33)
[2018-05-01] MEDS: NIFEdipine (XL) 90 MG TAB PO (08:33)
[2018-05-01] MEDS: LACTOBACILLUS RHAMNOSUS CAP PO ×2 (08:33→20:38)
[2018-05-01] MEDS: LACOSAMIDE (100 MG/10 ML PO SYR) PO ×2 (08:33→20:41)
[2018-05-01] MEDS: LIDOCAINE 5% PATCH TRANSDERM (08:34)
[2018-05-01] MEDS: BALSAM PERU/CASTOR OIL 60 GM TUBE TOP ×2 (08:34→20:46)
[2018-05-01] MEDS: DICLOFENAC SODIUM 1% GEL 100 GM TUBE TP ×4 (08:34→20:46)
[2018-05-01 08:40] LABS: ADD MAN DIFF? YES; POSITIVE DIFF @See below
[2018-05-01 08:48] LABS: ANION GAP 9 (5-13); BLOOD UREA NITROGEN 10 mg/dl (7-20); CALCIUM 8.2 mg/dl (8.4-10.2); CARBON DIOXIDE 13 mmol/L (21-31); CHLORIDE 118 mmol/L (97-110); CREATININE 1.18 mg/dl (0.44-1.00); Estimated GFR 48 mL/min (>60); GLUCOSE 88 mg/dl (70-220); MAGNESIUM 1.9 mg/dl (1.7-2.5); PHOSPHORUS 3.5 mg/dl (2.5-4.9); POTASSIUM 3.7 mmol/L (3.5-5.1); SODIUM 140 mmol/L (135-144)
[2018-05-01 09:26] LABS: ANISOCYTOSIS 1+ (0-0); BAND NEUTROPHILS #M 0.9 10^3/ul (0.0-0.6); BAND NEUTROPHILS % (M) 6 % (0-4); BASOPHIL #M 0.1 10^3/ul (0.0-0.0); BASOPHILS % (M) 1 % (0-2); GIANT THROMBO% (M) 1 % (0-0); LYMPHOCYTES #M 2.1 10^3/ul (0.8-2.9); LYMPHOCYTES % (M) 14 % (15-51); MICROCYTOSIS 1+ (0-0); MONOCYTE #M 0.9 10^3/ul (0.3-0.9); MONOCYTES % (M) 6 % (0-11); PLATELET ESTIMATE NORMAL; POIKILOCYTOSIS 1+ (0-0); POLYCHROMASIA 1+ (0-0); REACTIVE LYMPHOCYTES #M 0.7 10^3/ul (0.0-0.0); REACTIVE LYMPHOCYTES% (M) 5 % (0-0); SEG NEUT #M 10.3 10^3/ul (1.6-7.5); SEGMENTED NEUTROPHILS (M) % 68 % (39-77); SMUDGE%M 16 % (0-0)
[2018-05-01] MEDS: SOD CHLORIDE 0.9% 1,000 ML IV ×2 (15:03→20:50)
[2018-05-01] MEDS: CEFEPIME 1GM/50 ML (PMX) 50 ML IVPB (20:35)
[2018-05-01] MEDS: SENNA/DOCUSATE NA (8.6MG/50MG) TAB PO (20:40)
[2018-05-01 22:07] LABS: OCCULT BLOOD STOOL NEGATIVE (NEGATIVE)
[2018-05-01 23:29] LABS: LACTIC ACID 1.1 mmol/L (0.5-2.0)
[2018-05-02] MEDS: VANCOMYCIN 500 MG (PMX) 100 ML IVPB (00:08)
[2018-05-02 05:57] LABS: ADD MAN DIFF? NO
[2018-05-02] MEDS: PANTOPRAZOLE (EC) 40 MG TAB PO ×2 (06:06→17:10)
[2018-05-02 06:07] LABS: BASOPHILS % 0.5 % (0.0-2.0); EOSINOPHILS # 0.1 10^3/ul (0.0-0.5); EOSINOPHILS % 0.6 % (0.0-7.0); HEMATOCRIT 28.5 % (37.0-47.0); HEMOGLOBIN 9.5 g/dl (12.0-16.0); LYMPHOCYTES # 1.6 10^3/ul (0.8-2.9); LYMPHOCYTES % 18.1 % (15.0-51.0); MEAN CORPUSCULAR HEMOGLOBIN 30.9 pg (29.0-33.0); MEAN CORPUSCULAR HGB CONC 33.3 g/dl (32.0-37.0); MEAN CORPUSCULAR VOLUME 92.8 fl (82.0-101.0); MEAN PLATELET VOLUME 8.9 fl (7.4-10.4); MONOCYTES % 11.5 % (0.0-11.0); NEUTROPHIL # 5.9 10^3/ul (1.6-7.5); NEUTROPHILS % 67.7 % (39.0-77.0); PLATELET COUNT 237 10^3/UL (140-415); RED BLOOD COUNT 3.07 10^6/ul (4.20-5.40); RED CELL DISTRIBUTION WIDTH 16.6 % (11.5-14.5)
[2018-05-02 06:07] LABS: WHITE BLOOD COUNT 8.7 10^3/ul (4.8-10.8)
[2018-05-02] MEDS: LEVOTHYROXINE 50 MCG TAB PO (06:07)
[2018-05-02 06:33] LABS: MAGNESIUM 1.6 mg/dl (1.7-2.5)
[2018-05-02 06:33] LABS: PHOSPHORUS 4.4 mg/dl (2.5-4.9)
[2018-05-02 06:35] LABS: ANION GAP 7 (5-13); BLOOD UREA NITROGEN 9 mg/dl (7-20); CALCIUM 8.1 mg/dl (8.4-10.2); CARBON DIOXIDE 13 mmol/L (21-31); CHLORIDE 123 mmol/L (97-110); CREATININE 1.11 mg/dl (0.44-1.00); Estimated GFR 51 mL/min (>60); GLUCOSE 80 mg/dl (70-220); POTASSIUM 3.4 mmol/L (3.5-5.1); SODIUM 143 mmol/L (135-144)
[2018-05-02] MEDS: RISPERIDONE 0.25 MG TAB PO ×2 (08:18→20:19)
[2018-05-02] MEDS: LACOSAMIDE (100 MG/10 ML PO SYR) PO ×2 (08:18→20:18)
[2018-05-02] MEDS: LACTOBACILLUS RHAMNOSUS CAP PO ×2 (08:19→20:19)
[2018-05-02] MEDS: NIFEdipine (XL) 90 MG TAB PO (08:19)
[2018-05-02] MEDS: FAMOTIDINE 20 MG TAB PO (08:19)
[2018-05-02] MEDS: OXCARBAZEPINE 300 MG TAB PO ×2 (08:19→20:18)
[2018-05-02] MEDS: BALSAM PERU/CASTOR OIL 60 GM TUBE TOP ×2 (08:20→20:31)
[2018-05-02] MEDS: LIDOCAINE 5% PATCH TRANSDERM (08:20)
[2018-05-02] MEDS: DICLOFENAC SODIUM 1% GEL 100 GM TUBE TP ×4 (08:20→20:31)
[2018-05-02] MEDS: HYDROCODONE/APAP (5/325) TAB PO (11:10)
[2018-05-02] MEDS: ONDANSETRON 4 MG INJ IV (11:14)
[2018-05-02] MEDS: MAGNESIUM SULFATE 2 GM/50 ML 50 ML IVPB (12:13)
[2018-05-02] MEDS: POTASSIUM CHLORIDE (SR) 10 MEQ TAB PO (12:14)
[2018-05-02] MEDS: SENNA/DOCUSATE NA (8.6MG/50MG) TAB PO (20:19)
[2018-05-02] MEDS: CEFEPIME 1GM/50 ML (PMX) 50 ML IVPB (20:19)
[2018-05-02] MEDS: IBUPROFEN 600 MG TAB PO (20:22)
[2018-05-02] MEDS: SOD CHLORIDE 0.9% 1,000 ML IV (20:36)
[2018-05-03 01:37] LABS: VANCOMYCIN,TROUGH 12.5 ug/ml (10.0-20.0)
[2018-05-03] MEDS: VANCOMYCIN 500 MG (PMX) 100 ML IVPB (02:19)
[2018-05-03] MEDS: PANTOPRAZOLE (EC) 40 MG TAB PO ×2 (06:24→18:17)
[2018-05-03] MEDS: LEVOTHYROXINE 50 MCG TAB PO (06:24)
[2018-05-03] MEDS: SOD CHLORIDE 0.9% 1,000 ML IV ×2 (07:03→17:41)
[2018-05-03 08:38] LABS: ADD MAN DIFF? NO
[2018-05-03 08:40] LABS: WHITE BLOOD COUNT 8.2 10^3/ul (4.8-10.8)
[2018-05-03 08:40] LABS: BASOPHILS % 0.4 % (0.0-2.0); EOSINOPHILS # 0.1 10^3/ul (0.0-0.5); EOSINOPHILS % 0.9 % (0.0-7.0); HEMATOCRIT 31.6 % (37.0-47.0); HEMOGLOBIN 10.1 g/dl (12.0-16.0); LYMPHOCYTES # 1.3 10^3/ul (0.8-2.9); LYMPHOCYTES % 16.2 % (15.0-51.0); MEAN CORPUSCULAR HEMOGLOBIN 30.5 pg (29.0-33.0); MEAN CORPUSCULAR VOLUME 95.5 fl (82.0-101.0); MEAN PLATELET VOLUME 9.1 fl (7.4-10.4); MONOCYTE # 0.7 10^3/ul (0.3-0.9); MONOCYTES % 8.5 % (0.0-11.0); NEUTROPHIL # 5.9 10^3/ul (1.6-7.5); NEUTROPHILS % 71.9 % (39.0-77.0); PLATELET COUNT 279 10^3/UL (140-415); RED BLOOD COUNT 3.31 10^6/ul (4.20-5.40); RED CELL DISTRIBUTION WIDTH 17.2 % (11.5-14.5)
[2018-05-03] MEDS: OXCARBAZEPINE 300 MG TAB PO ×2 (08:50→21:23)
[2018-05-03] MEDS: FAMOTIDINE 20 MG TAB PO (08:50)
[2018-05-03] MEDS: LACOSAMIDE (100 MG/10 ML PO SYR) PO ×2 (08:50→21:23)
[2018-05-03] MEDS: RISPERIDONE 0.25 MG TAB PO ×2 (08:51→21:23)
[2018-05-03] MEDS: NIFEdipine (XL) 90 MG TAB PO (08:51)
[2018-05-03] MEDS: LACTOBACILLUS RHAMNOSUS CAP PO ×2 (08:51→21:23)
[2018-05-03] MEDS: LIDOCAINE 5% PATCH TRANSDERM (08:52)
[2018-05-03 09:00] LABS: MAGNESIUM 2.2 mg/dl (1.7-2.5)
[2018-05-03] MEDS: BALSAM PERU/CASTOR OIL 60 GM TUBE TOP ×2 (09:00→21:36)
[2018-05-03] MEDS: DICLOFENAC SODIUM 1% GEL 100 GM TUBE TP ×4 (09:00→21:36)
[2018-05-03 09:01] LABS: ANION GAP 8 (5-13); BLOOD UREA NITROGEN 9 mg/dl (7-20); CALCIUM 8.5 mg/dl (8.4-10.2); CARBON DIOXIDE 12 mmol/L (21-31); CHLORIDE 121 mmol/L (97-110); CREATININE 1.05 mg/dl (0.44-1.00); Estimated GFR 55 mL/min (>60); GLUCOSE 76 mg/dl (70-220); POTASSIUM 3.8 mmol/L (3.5-5.1); SODIUM 141 mmol/L (135-144)
[2018-05-03] MEDS: IBUPROFEN 600 MG TAB PO (13:48)
[2018-05-03] MEDS: hydrALAzine 20 MG INJ IV (16:41)
[2018-05-03] MEDS: LORAZEPAM 2 MG INJ IV (17:23)
[2018-05-03] MEDS: ACETAMINOPHEN 325 MG TAB PO (19:23)
[2018-05-03] MEDS: SOD CHLORIDE 0.9% 500 ML IV ×2 (19:55→22:20)
[2018-05-03 20:38] LABS: LACTIC ACID 1.5 mmol/L (0.5-2.0)
[2018-05-03] MEDS: SENNA/DOCUSATE NA (8.6MG/50MG) TAB PO (21:23)
[2018-05-03] MEDS: morphine LIQ (10 MG/5 ML) CUP PO (21:25)
[2018-05-03] MEDS: CEFEPIME 1GM/50 ML (PMX) 50 ML IVPB (21:33)
[2018-05-04] MEDS: VANCOMYCIN 500 MG (PMX) 100 ML IVPB (01:24)
[2018-05-04] MEDS: LEVOTHYROXINE 50 MCG TAB PO (06:06)
[2018-05-04] MEDS: PANTOPRAZOLE (EC) 40 MG TAB PO ×2 (06:06→17:29)
[2018-05-04] MEDS: morphine LIQ (10 MG/5 ML) CUP PO (06:07)
[2018-05-04] MEDS: hydrALAzine 20 MG INJ IV ×2 (07:32→14:08)
[2018-05-04] MEDS: ACETAMINOPHEN 325 MG TAB PO ×2 (07:32→14:08)
[2018-05-04 07:54] LABS: ADD MAN DIFF? NO
[2018-05-04 07:59] LABS: BASOPHIL # 0.1 10^3/ul (0.0-0.1); BASOPHILS % 0.4 % (0.0-2.0); EOSINOPHILS % 0.2 % (0.0-7.0); HEMOGLOBIN 10.5 g/dl (12.0-16.0); LYMPHOCYTES % 8.9 % (15.0-51.0); MEAN CORPUSCULAR HEMOGLOBIN 30.4 pg (29.0-33.0); MEAN CORPUSCULAR HGB CONC 31.8 g/dl (32.0-37.0); MEAN CORPUSCULAR VOLUME 95.7 fl (82.0-101.0); MEAN PLATELET VOLUME 9.2 fl (7.4-10.4); MONOCYTE # 1.3 10^3/ul (0.3-0.9); MONOCYTES % 5.6 % (0.0-11.0); NEUTROPHILS % 83.6 % (39.0-77.0); PLATELET COUNT 358 10^3/UL (140-415); RED BLOOD COUNT 3.45 10^6/ul (4.20-5.40); RED CELL DISTRIBUTION WIDTH 17.3 % (11.5-14.5)
[2018-05-04 07:59] LABS: WHITE BLOOD COUNT 22.7 10^3/ul (4.8-10.8)
[2018-05-04 08:11] LABS: ANION GAP 8 (5-13); BLOOD UREA NITROGEN 7 mg/dl (7-20); CALCIUM 8.3 mg/dl (8.4-10.2); CARBON DIOXIDE 11 mmol/L (21-31); CHLORIDE 122 mmol/L (97-110); CREATININE 0.94 mg/dl (0.44-1.00); Estimated GFR > 60 mL/min (>60); GLUCOSE 85 mg/dl (70-220); POTASSIUM 3.8 mmol/L (3.5-5.1); SODIUM 141 mmol/L (135-144)
[2018-05-04 08:18] LABS: PHOSPHORUS 3.9 mg/dl (2.5-4.9)
[2018-05-04 08:18] LABS: MAGNESIUM 1.4 mg/dl (1.7-2.5)
[2018-05-04] MEDS: LIDOCAINE 5% PATCH TRANSDERM (09:00)
[2018-05-04] MEDS: DICLOFENAC SODIUM 1% GEL 100 GM TUBE TP ×4 (09:00→20:04)
[2018-05-04] MEDS: BALSAM PERU/CASTOR OIL 60 GM TUBE TOP ×2 (09:02→20:04)
[2018-05-04] MEDS: LACOSAMIDE (100 MG/10 ML PO SYR) PO ×2 (11:09→20:03)
[2018-05-04] MEDS: RISPERIDONE 0.25 MG TAB PO ×2 (11:11→21:01)
[2018-05-04] MEDS: LACTOBACILLUS RHAMNOSUS CAP PO ×2 (11:11→20:03)
[2018-05-04] MEDS: FAMOTIDINE 20 MG TAB PO (11:11)
[2018-05-04] MEDS: OXCARBAZEPINE 300 MG TAB PO ×2 (11:11→20:03)
[2018-05-04] MEDS: NIFEdipine (XL) 90 MG TAB PO (11:11)
[2018-05-04] MEDS: MAGNESIUM SULFATE 3 GM in DEXTROSE 5% 100 ML IVPB (14:36)
[2018-05-04] MEDS: CLONIDINE 0.1 MG/24 HR PATCH TRANSDERM (17:33)
[2018-05-04] MEDS: SENNA/DOCUSATE NA (8.6MG/50MG) TAB PO (20:03)
[2018-05-04] MEDS: CEFEPIME 1GM/50 ML (PMX) 50 ML IVPB (20:03)
[2018-05-04] MEDS: SOD CHLORIDE 0.9% 1,000 ML IV (21:02)
[2018-05-05] MEDS: morphine LIQ (10 MG/5 ML) CUP PO (00:50)
[2018-05-05] MEDS: VANCOMYCIN 500 MG (PMX) 100 ML IVPB (01:09)
[2018-05-05] MEDS: LEVOTHYROXINE 50 MCG TAB PO (06:16)
[2018-05-05] MEDS: PANTOPRAZOLE (EC) 40 MG TAB PO ×2 (06:16→17:56)
[2018-05-05 06:34] LABS: ADD MAN DIFF? NO
[2018-05-05 06:47] LABS: WHITE BLOOD COUNT 22.8 10^3/ul (4.8-10.8)
[2018-05-05 06:47] LABS: BASOPHIL # 0.1 10^3/ul (0.0-0.1); BASOPHILS % 0.4 % (0.0-2.0); EOSINOPHILS # 0.1 10^3/ul (0.0-0.5); EOSINOPHILS % 0.3 % (0.0-7.0); HEMATOCRIT 26.5 % (37.0-47.0); HEMOGLOBIN 8.9 g/dl (12.0-16.0); LYMPHOCYTES # 2.5 10^3/ul (0.8-2.9); MEAN CORPUSCULAR HEMOGLOBIN 31.8 pg (29.0-33.0); MEAN CORPUSCULAR HGB CONC 33.6 g/dl (32.0-37.0); MEAN CORPUSCULAR VOLUME 94.6 fl (82.0-101.0); MEAN PLATELET VOLUME 9.2 fl (7.4-10.4); MONOCYTE # 1.1 10^3/ul (0.3-0.9); MONOCYTES % 4.9 % (0.0-11.0); NEUTROPHIL # 18.7 10^3/ul (1.6-7.5); NEUTROPHILS % 81.7 % (39.0-77.0); PLATELET COUNT 359 10^3/UL (140-415); RED CELL DISTRIBUTION WIDTH 17.2 % (11.5-14.5)
[2018-05-05 07:05] LABS: ANION GAP 8 (5-13); BLOOD UREA NITROGEN 8 mg/dl (7-20); CALCIUM 8.1 mg/dl (8.4-10.2); CARBON DIOXIDE 12 mmol/L (21-31); CHLORIDE 120 mmol/L (97-110); CREATININE 0.89 mg/dl (0.44-1.00); Estimated GFR > 60 mL/min (>60); GLUCOSE 81 mg/dl (70-220); POTASSIUM 3.5 mmol/L (3.5-5.1); SODIUM 140 mmol/L (135-144)
[2018-05-05 07:08] LABS: MAGNESIUM 2.5 mg/dl (1.7-2.5)
[2018-05-05 07:08] LABS: PHOSPHORUS 4.5 mg/dl (2.5-4.9)
[2018-05-05] MEDS: NIFEdipine (XL) 90 MG TAB PO (09:52)
[2018-05-05] MEDS: LACTOBACILLUS RHAMNOSUS CAP PO ×2 (09:52→20:17)
[2018-05-05] MEDS: RISPERIDONE 0.25 MG TAB PO ×2 (09:52→20:17)
[2018-05-05] MEDS: FAMOTIDINE 20 MG TAB PO (09:52)
[2018-05-05] MEDS: LACOSAMIDE (100 MG/10 ML PO SYR) PO ×2 (09:53→20:17)
[2018-05-05] MEDS: OXCARBAZEPINE 300 MG TAB PO ×2 (09:53→20:16)
[2018-05-05] MEDS: BALSAM PERU/CASTOR OIL 60 GM TUBE TOP ×2 (09:54→20:17)
[2018-05-05] MEDS: DICLOFENAC SODIUM 1% GEL 100 GM TUBE TP ×4 (09:54→20:17)
[2018-05-05] MEDS: LIDOCAINE 5% PATCH TRANSDERM (09:55)
[2018-05-05] MEDS: ENOXAPARIN 40 MG/0.4 ML SYG SC (09:57)
[2018-05-05] MEDS: IBUPROFEN 600 MG TAB PO (13:32)
[2018-05-05] MEDS: SENNA/DOCUSATE NA (8.6MG/50MG) TAB PO (20:17)
[2018-05-05] MEDS: CEFEPIME 1GM/50 ML (PMX) 50 ML IVPB (20:55)
[2018-05-05] MEDS: SOD CHLORIDE 0.9% 1,000 ML IV (20:55)
[2018-05-06] MEDS: VANCOMYCIN 500 MG (PMX) 100 ML IVPB (00:52)
[2018-05-06] MEDS: PANTOPRAZOLE (EC) 40 MG TAB PO ×2 (06:11→17:25)
[2018-05-06] MEDS: LEVOTHYROXINE 50 MCG TAB PO (06:11)
[2018-05-06 08:31] LABS: ADD MAN DIFF? NO
[2018-05-06 08:33] LABS: WHITE BLOOD COUNT 17.9 10^3/ul (4.8-10.8)
[2018-05-06 08:33] LABS: BASOPHIL # 0.1 10^3/ul (0.0-0.1); BASOPHILS % 0.4 % (0.0-2.0); EOSINOPHILS # 0.2 10^3/ul (0.0-0.5); EOSINOPHILS % 0.8 % (0.0-7.0); HEMATOCRIT 28.2 % (37.0-47.0); HEMOGLOBIN 9.2 g/dl (12.0-16.0); LYMPHOCYTES % 11.2 % (15.0-51.0); MEAN CORPUSCULAR HEMOGLOBIN 30.8 pg (29.0-33.0); MEAN CORPUSCULAR HGB CONC 32.6 g/dl (32.0-37.0); MEAN CORPUSCULAR VOLUME 94.3 fl (82.0-101.0); MEAN PLATELET VOLUME 8.7 fl (7.4-10.4); MONOCYTE # 0.5 10^3/ul (0.3-0.9); MONOCYTES % 2.9 % (0.0-11.0); NEUTROPHIL # 14.9 10^3/ul (1.6-7.5); NEUTROPHILS % 83.4 % (39.0-77.0); PLATELET COUNT 421 10^3/UL (140-415); RED BLOOD COUNT 2.99 10^6/ul (4.20-5.40); RED CELL DISTRIBUTION WIDTH 17.2 % (11.5-14.5)
[2018-05-06] MEDS: LACOSAMIDE (100 MG/10 ML PO SYR) PO ×2 (08:46→20:29)
[2018-05-06] MEDS: LACTOBACILLUS RHAMNOSUS CAP PO ×2 (08:46→20:29)
[2018-05-06] MEDS: HYDROCODONE/APAP (5/325) TAB PO (08:46)
[2018-05-06] MEDS: FAMOTIDINE 20 MG TAB PO (08:46)
[2018-05-06] MEDS: OXCARBAZEPINE 300 MG TAB PO ×2 (08:46→20:28)
[2018-05-06] MEDS: RISPERIDONE 0.25 MG TAB PO ×2 (08:46→20:28)
[2018-05-06] MEDS: NIFEdipine (XL) 90 MG TAB PO (08:47)
[2018-05-06] MEDS: BALSAM PERU/CASTOR OIL 60 GM TUBE TOP ×2 (08:47→20:30)
[2018-05-06] MEDS: DICLOFENAC SODIUM 1% GEL 100 GM TUBE TP ×4 (08:47→20:30)
[2018-05-06] MEDS: LIDOCAINE 5% PATCH TRANSDERM (08:47)
[2018-05-06] MEDS: ENOXAPARIN 40 MG/0.4 ML SYG SC (08:48)
[2018-05-06 08:50] LABS: INR 1.09; PROTIME 14.2 Sec (11.9-14.9); PT RATIO 1.1
[2018-05-06 08:58] LABS: MAGNESIUM 1.8 mg/dl (1.7-2.5)
[2018-05-06 08:59] LABS: ALANINE AMINOTRANSFERASE 10 IU/L (13-69); ALBUMIN 2.6 g/dl (3.3-4.9); ALBUMIN/GLOBULIN RATIO 0.89; ALKALINE PHOSPHATASE 127 IU/L (42-121); ANION GAP 7 (5-13); ASPARTATE AMINO TRANSFERASE 12 IU/L (15-46); BLOOD UREA NITROGEN 8 mg/dl (7-20); CALCIUM 8.7 mg/dl (8.4-10.2); CARBON DIOXIDE 12 mmol/L (21-31); CHLORIDE 123 mmol/L (97-110); CREATININE 0.86 mg/dl (0.44-1.00); Estimated GFR > 60 mL/min (>60); GLUCOSE 81 mg/dl (70-220); POTASSIUM 3.3 mmol/L (3.5-5.1); SODIUM 142 mmol/L (135-144); TOTAL PROTEIN 5.5 g/dl (6.1-8.1)
[2018-05-06] MEDS: IODIXANOL LOCM 100 ML BTL (10:38)
[2018-05-06] MEDS: SOD CHLORIDE 0.9% 100 ML (10:39)
[2018-05-06] MEDS: HYDROCORTISONE 5 MG TAB PO ×3 (12:16→20:29)
[2018-05-06] MEDS: SENNA/DOCUSATE NA (8.6MG/50MG) TAB PO (20:29)
[2018-05-06] MEDS: CEFEPIME 1GM/50 ML (PMX) 50 ML IVPB (21:07)
[2018-05-07] MEDS: VANCOMYCIN 500 MG (PMX) 100 ML IVPB ×2 (00:53→21:34)
[2018-05-07] MEDS: morphine LIQ (10 MG/5 ML) CUP PO (01:41)
[2018-05-07 06:12] LABS: ADD MAN DIFF? NO
[2018-05-07] MEDS: PANTOPRAZOLE (EC) 40 MG TAB PO ×2 (06:15→17:54)
[2018-05-07] MEDS: LEVOTHYROXINE 50 MCG TAB PO (06:15)
[2018-05-07 06:16] LABS: WHITE BLOOD COUNT 14.3 10^3/ul (4.8-10.8)
[2018-05-07 06:16] LABS: BASOPHIL # 0.1 10^3/ul (0.0-0.1); BASOPHILS % 0.5 % (0.0-2.0); EOSINOPHILS # 0.1 10^3/ul (0.0-0.5); EOSINOPHILS % 0.8 % (0.0-7.0); HEMATOCRIT 25.5 % (37.0-47.0); HEMOGLOBIN 8.3 g/dl (12.0-16.0); LYMPHOCYTES # 2.3 10^3/ul (0.8-2.9); LYMPHOCYTES % 16.3 % (15.0-51.0); MEAN CORPUSCULAR HEMOGLOBIN 30.6 pg (29.0-33.0); MEAN CORPUSCULAR HGB CONC 32.5 g/dl (32.0-37.0); MEAN CORPUSCULAR VOLUME 94.1 fl (82.0-101.0); MEAN PLATELET VOLUME 8.9 fl (7.4-10.4); MONOCYTE # 0.7 10^3/ul (0.3-0.9); NEUTROPHIL # 10.9 10^3/ul (1.6-7.5); NEUTROPHILS % 75.9 % (39.0-77.0); PLATELET COUNT 452 10^3/UL (140-415); RED BLOOD COUNT 2.71 10^6/ul (4.20-5.40); RED CELL DISTRIBUTION WIDTH 17.1 % (11.5-14.5)
[2018-05-07 06:49] LABS: ALANINE AMINOTRANSFERASE 17 IU/L (13-69); ALBUMIN 2.4 g/dl (3.3-4.9); ALBUMIN/GLOBULIN RATIO 0.88; ALKALINE PHOSPHATASE 104 IU/L (42-121); ANION GAP 11 (5-13); ASPARTATE AMINO TRANSFERASE 13 IU/L (15-46); BLOOD UREA NITROGEN 10 mg/dl (7-20); CALCIUM 8.2 mg/dl (8.4-10.2); CARBON DIOXIDE 14 mmol/L (21-31); CHLORIDE 118 mmol/L (97-110); CREATININE 0.89 mg/dl (0.44-1.00); Estimated GFR > 60 mL/min (>60); GLUCOSE 82 mg/dl (70-220); MAGNESIUM 1.6 mg/dl (1.7-2.5); PHOSPHORUS 5.1 mg/dl (2.5-4.9); POTASSIUM 3.2 mmol/L (3.5-5.1); SODIUM 143 mmol/L (135-144); TOTAL PROTEIN 5.1 g/dl (6.1-8.1)
[2018-05-07] MEDS: HYDROCORTISONE 5 MG TAB PO ×3 (08:55→21:34)
[2018-05-07] MEDS: NIFEdipine (XL) 90 MG TAB PO (08:57)
[2018-05-07] MEDS: LACTOBACILLUS RHAMNOSUS CAP PO ×2 (08:57→21:34)
[2018-05-07] MEDS: FAMOTIDINE 20 MG TAB PO (08:57)
[2018-05-07] MEDS: OXCARBAZEPINE 300 MG TAB PO ×2 (08:57→20:33)
[2018-05-07] MEDS: RISPERIDONE 0.25 MG TAB PO ×2 (08:58→20:33)
[2018-05-07] MEDS: ENOXAPARIN 40 MG/0.4 ML SYG SC (08:58)
[2018-05-07] MEDS: LACOSAMIDE (100 MG/10 ML PO SYR) PO ×2 (08:58→21:33)
[2018-05-07] MEDS: BALSAM PERU/CASTOR OIL 60 GM TUBE TOP ×3 (08:59→21:00)
[2018-05-07] MEDS: DICLOFENAC SODIUM 1% GEL 100 GM TUBE TP ×5 (08:59→21:32)
[2018-05-07] MEDS: LIDOCAINE 5% PATCH TRANSDERM (08:59)
[2018-05-07 14:49] LABS: ERYTHROCYTE SEDIMENTATION RATE 70 mm/Hr (0-30)
[2018-05-07] MEDS: POTASSIUM CHLORIDE 20 MEQ POWDER FOR ORAL SOLN PO (18:51)
[2018-05-07] MEDS: LOSARTAN 25 MG TAB PO (20:28)
[2018-05-07] MEDS: CEFEPIME 1GM/50 ML (PMX) 50 ML IVPB (20:28)
[2018-05-07] MEDS: SENNA/DOCUSATE NA (8.6MG/50MG) TAB PO (20:33)
[2018-05-07] MEDS: MAGNESIUM OXIDE 400 MG TAB PO (20:33)
[2018-05-08] MEDS: PANTOPRAZOLE (EC) 40 MG TAB PO ×2 (05:56→17:16)
[2018-05-08] MEDS: LEVOTHYROXINE 50 MCG TAB PO (06:00)
[2018-05-08] MEDS: POTASSIUM CHLORIDE 20 MEQ POWDER FOR ORAL SOLN PO ×2 (08:15→17:16)
[2018-05-08] MEDS: LACTOBACILLUS RHAMNOSUS CAP PO ×2 (08:15→21:04)
[2018-05-08] MEDS: RISPERIDONE 0.25 MG TAB PO ×2 (08:15→21:04)
[2018-05-08] MEDS: LACOSAMIDE (100 MG/10 ML PO SYR) PO ×2 (08:15→21:04)
[2018-05-08] MEDS: MAGNESIUM OXIDE 400 MG TAB PO ×2 (08:15→21:04)
[2018-05-08] MEDS: LOSARTAN 25 MG TAB PO (08:15)
[2018-05-08] MEDS: HYDROCORTISONE 5 MG TAB PO ×3 (08:15→21:04)
[2018-05-08] MEDS: OXCARBAZEPINE 300 MG TAB PO ×2 (08:15→21:04)
[2018-05-08] MEDS: LIDOCAINE 5% PATCH TRANSDERM (08:16)
[2018-05-08] MEDS: NIFEdipine (XL) 90 MG TAB PO (08:16)
[2018-05-08] MEDS: ENOXAPARIN 40 MG/0.4 ML SYG SC (08:17)
[2018-05-08] MEDS: DICLOFENAC SODIUM 1% GEL 100 GM TUBE TP ×4 (08:17→21:00)
[2018-05-08] MEDS: BALSAM PERU/CASTOR OIL 60 GM TUBE TOP ×2 (08:17→21:00)
[2018-05-08 20:45] LABS: VANCOMYCIN,TROUGH 12.2 ug/ml (10.0-20.0)
[2018-05-08] MEDS: CEFEPIME 1GM/50 ML (PMX) 50 ML IVPB (20:58)
[2018-05-08] MEDS: SENNA/DOCUSATE NA (8.6MG/50MG) TAB PO (21:00)
[2018-05-08] MEDS: VANCOMYCIN 500 MG (PMX) 100 ML IVPB (22:13)
[2018-05-09] MEDS: ACETAMINOPHEN 325 MG TAB PO (06:04)
[2018-05-09] MEDS: LEVOTHYROXINE 50 MCG TAB PO (06:04)
[2018-05-09] MEDS: PANTOPRAZOLE (EC) 40 MG TAB PO ×2 (06:04→17:10)
[2018-05-09] MEDS: HYDROCORTISONE 5 MG TAB PO ×3 (08:36→20:30)
[2018-05-09] MEDS: LACOSAMIDE (100 MG/10 ML PO SYR) PO ×2 (08:36→20:31)
[2018-05-09] MEDS: LOSARTAN 25 MG TAB PO (08:37)
[2018-05-09] MEDS: MAGNESIUM OXIDE 400 MG TAB PO ×2 (08:37→20:30)
[2018-05-09] MEDS: LACTOBACILLUS RHAMNOSUS CAP PO ×2 (08:37→20:31)
[2018-05-09] MEDS: OXCARBAZEPINE 300 MG TAB PO ×2 (08:37→20:29)
[2018-05-09] MEDS: POTASSIUM CHLORIDE 20 MEQ POWDER FOR ORAL SOLN PO (08:37)
[2018-05-09] MEDS: ENOXAPARIN 40 MG/0.4 ML SYG SC (08:38)
[2018-05-09] MEDS: RISPERIDONE 0.25 MG TAB PO ×2 (08:38→20:31)
[2018-05-09] MEDS: NIFEdipine (XL) 90 MG TAB PO (08:38)
[2018-05-09] MEDS: BALSAM PERU/CASTOR OIL 60 GM TUBE TOP ×2 (08:39→20:32)
[2018-05-09] MEDS: DICLOFENAC SODIUM 1% GEL 100 GM TUBE TP ×4 (08:39→20:32)
[2018-05-09] MEDS: LIDOCAINE 5% PATCH TRANSDERM (08:42)
[2018-05-09 13:22] LABS: ANA SCREEN NEGATIVE (NEGATIVE)
[2018-05-09] MEDS: ASPIRIN (EC) 81 MG TAB PO (14:28)
[2018-05-09] MEDS: METOPROLOL 25 MG TAB PO ×2 (14:31→23:18)
[2018-05-09] MEDS: CEFEPIME 1GM/50 ML (PMX) 50 ML IVPB (20:29)
[2018-05-09] MEDS: SENNA/DOCUSATE NA (8.6MG/50MG) TAB PO (20:30)
[2018-05-09] MEDS: NA BICARBONATE 650 MG TAB PO (20:31)
[2018-05-09] MEDS: VANCOMYCIN 500 MG (PMX) 100 ML IVPB (21:27)
[2018-05-10] MEDS: LEVOTHYROXINE 50 MCG TAB PO (06:06)
[2018-05-10] MEDS: PANTOPRAZOLE (EC) 40 MG TAB PO ×2 (06:06→17:18)
[2018-05-10 07:07] LABS: ADD MAN DIFF? NO
[2018-05-10 07:16] LABS: WHITE BLOOD COUNT 7.4 10^3/ul (4.8-10.8)
[2018-05-10 07:16] LABS: BASOPHIL # 0.1 10^3/ul (0.0-0.1); BASOPHILS % 0.8 % (0.0-2.0); EOSINOPHILS # 0.1 10^3/ul (0.0-0.5); EOSINOPHILS % 1.5 % (0.0-7.0); HEMATOCRIT 28.2 % (37.0-47.0); HEMOGLOBIN 9.1 g/dl (12.0-16.0); LYMPHOCYTES # 2.6 10^3/ul (0.8-2.9); LYMPHOCYTES % 35.5 % (15.0-51.0); MEAN CORPUSCULAR HEMOGLOBIN 30.4 pg (29.0-33.0); MEAN CORPUSCULAR HGB CONC 32.3 g/dl (32.0-37.0); MEAN CORPUSCULAR VOLUME 94.3 fl (82.0-101.0); MEAN PLATELET VOLUME 8.4 fl (7.4-10.4); MONOCYTE # 0.7 10^3/ul (0.3-0.9); MONOCYTES % 9.9 % (0.0-11.0); NEUTROPHIL # 3.7 10^3/ul (1.6-7.5); NEUTROPHILS % 49.6 % (39.0-77.0); PLATELET COUNT 574 10^3/UL (140-415); RED BLOOD COUNT 2.99 10^6/ul (4.20-5.40); RED CELL DISTRIBUTION WIDTH 16.7 % (11.5-14.5)
[2018-05-10 08:12] LABS: CREATININE 0.84 mg/dl (0.44-1.00)
[2018-05-10 08:12] LABS: BLOOD UREA NITROGEN 15 mg/dl (7-20)
[2018-05-10 08:16] LABS: ANION GAP 7 (5-13); BLOOD UREA NITROGEN 15 mg/dl (7-20); CALCIUM 8.9 mg/dl (8.4-10.2); CARBON DIOXIDE 15 mmol/L (21-31); CHLORIDE 114 mmol/L (97-110); Estimated GFR > 60 mL/min (>60); GLUCOSE 69 mg/dl (70-220); POTASSIUM 4.8 mmol/L (3.5-5.1); SODIUM 136 mmol/L (135-144)
[2018-05-10] MEDS: MAGNESIUM OXIDE 400 MG TAB PO ×2 (08:40→20:44)
[2018-05-10] MEDS: LACOSAMIDE (100 MG/10 ML PO SYR) PO ×2 (08:40→20:45)
[2018-05-10] MEDS: NIFEdipine (XL) 60 MG TAB PO (08:40)
[2018-05-10] MEDS: HYDROCORTISONE 5 MG TAB PO ×3 (08:40→20:43)
[2018-05-10] MEDS: LACTOBACILLUS RHAMNOSUS CAP PO ×2 (08:40→20:43)
[2018-05-10] MEDS: POTASSIUM CHLORIDE 20 MEQ POWDER FOR ORAL SOLN PO (08:41)
[2018-05-10] MEDS: METOPROLOL 25 MG TAB PO ×2 (08:41→20:44)
[2018-05-10] MEDS: ASPIRIN (EC) 81 MG TAB PO (08:41)
[2018-05-10] MEDS: LOSARTAN 25 MG TAB PO (08:41)
[2018-05-10] MEDS: BALSAM PERU/CASTOR OIL 60 GM TUBE TOP ×2 (08:42→20:45)
[2018-05-10] MEDS: RISPERIDONE 0.25 MG TAB PO ×2 (08:42→20:44)
[2018-05-10] MEDS: DICLOFENAC SODIUM 1% GEL 100 GM TUBE TP ×4 (08:42→20:45)
[2018-05-10] MEDS: NA BICARBONATE 650 MG TAB PO ×3 (08:42→20:42)
[2018-05-10] MEDS: OXCARBAZEPINE 300 MG TAB PO ×2 (08:42→20:44)
[2018-05-10] MEDS: LIDOCAINE 5% PATCH TRANSDERM (08:43)
[2018-05-10] MEDS: ENOXAPARIN 40 MG/0.4 ML SYG SC (08:45)
[2018-05-10] MEDS: CEFEPIME 1GM/50 ML (PMX) 50 ML IVPB (20:42)
[2018-05-10] MEDS: SENNA/DOCUSATE NA (8.6MG/50MG) TAB PO (20:42)
[2018-05-10] MEDS: VANCOMYCIN 500 MG (PMX) 100 ML IVPB (21:23)
[2018-05-11] MEDS: LEVOTHYROXINE 50 MCG TAB PO (06:20)
[2018-05-11] MEDS: PANTOPRAZOLE (EC) 40 MG TAB PO (06:21)
[2018-05-11] MEDS: POTASSIUM CHLORIDE 20 MEQ POWDER FOR ORAL SOLN PO ×2 (09:00→09:22)
[2018-05-11] MEDS: DICLOFENAC SODIUM 1% GEL 100 GM TUBE TP ×2 (09:00→12:28)
[2018-05-11] MEDS: NA BICARBONATE 650 MG TAB PO ×2 (09:21→12:28)
[2018-05-11] MEDS: HYDROCORTISONE 5 MG TAB PO ×2 (09:21→15:16)
[2018-05-11] MEDS: OXCARBAZEPINE 300 MG TAB PO (09:22)
[2018-05-11] MEDS: LACTOBACILLUS RHAMNOSUS CAP PO (09:22)
[2018-05-11] MEDS: NIFEdipine (XL) 60 MG TAB PO (09:23)
[2018-05-11] MEDS: METOPROLOL 25 MG TAB PO (09:24)
[2018-05-11] MEDS: MAGNESIUM OXIDE 400 MG TAB PO (09:24)
[2018-05-11] MEDS: LIDOCAINE 5% PATCH TRANSDERM (09:26)
[2018-05-11] MEDS: RISPERIDONE 0.25 MG TAB PO (09:26)
[2018-05-11] MEDS: LACOSAMIDE (100 MG/10 ML PO SYR) PO (09:26)
[2018-05-11] MEDS: LOSARTAN 25 MG TAB PO (09:26)
[2018-05-11] MEDS: ASPIRIN (EC) 81 MG TAB PO (09:26)
[2018-05-11] MEDS: BALSAM PERU/CASTOR OIL 60 GM TUBE TOP (09:27)
[2018-05-11] MEDS: ENOXAPARIN 40 MG/0.4 ML SYG SC (09:28)
[2018-05-11 13:21] LABS: PROCALCITONIN 1.45 ng/mL (<0.10)
== END 2018-05-11 15:29 | DRG 871 ==
LOC: E/R 06:33 → 5EC 04-29 20:44 → TEL 12:45
PROVIDERS: Internal Medicine
PROC: 05HY33Z Insertion of Infusion Device into Upper Vein, Percutaneous Approach (ICD-10-PCS; principal; 2018-04-27)
PROC: 30233N1 Transfusion of Nonautologous Red Blood Cells into Peripheral Vein, Percutaneous Approach (ICD-10-PCS; 2018-04-29)
DX: A41.9 Sepsis, unspecified organism (principal); G92 Toxic encephalopathy; E27.40 Unspecified adrenocortical insufficiency; N17.9 Acute kidney failure, unspecified; M60.051 Infective myositis, right thigh; L03.113 Cellulitis of right upper limb; D64.9 Anemia, unspecified; E11.22 Type 2 diabetes mellitus with diabetic chronic kidney disease; E03.9 Hypothyroidism, unspecified; E78.5 Hyperlipidemia, unspecified; F29 Unspecified psychosis not due to a substance or known physiological condition; G40.909 Epilepsy, unspecified, not intractable, without status epilepticus; I12.9 Hypertensive chronic kidney disease with stage 1 through stage 4 chronic kidney disease, or unspecified chronic kidney disease; K21.9 Gastro-esophageal reflux disease without esophagitis; N18.3 Chronic kidney disease, stage 3 (moderate); R62.7 Adult failure to thrive; Z68.21 Body mass index [BMI] 21.0-21.9, adult; S72.012D Unspecified intracapsular fracture of left femur, subsequent encounter for closed fracture with routine healing; S32.592D Other specified fracture of left pubis, subsequent encounter for fracture with routine healing; W01.0XXD Fall on same level from slipping, tripping and stumbling without subsequent striking against object, subsequent encounter; Z86.73 Personal history of transient ischemic attack (TIA), and cerebral infarction without residual deficits; Z91.14 Patient's other noncompliance with medication regimen
CPT/HCPCS: 36430; 36569; 70450; 71045; 72170; 73200; 73590; 73721; 74176; 76937; 78806; 80048; 80053; 80202; 81003; 82270; 82550; 82565; 82962; 83605; 83735; 84100; 84145; 84484; 84520; 85014; 85018; 85025; 85610; 85651; 85730; 86038; 86140; 86850; 86900; 86901; 86920; 87040; 87075; 87081; 87086; 87400; 93005; 93970; 93971; 96372; 96374; 96375; 97110; 97116; 97161; 97530; 99285-25

== ENCOUNTER 2018-08-11 21:10 | Emergency (ER) | payer MEDICAID, OTHER ==
[2018-08-11] MEDS: ONDANSETRON 4 MG INJ IV (21:33)
[2018-08-11] MEDS: SOD CHLORIDE 0.9% 500 ML IV (21:33)
[2018-08-11 21:45] LABS: ADD MAN DIFF? NO
[2018-08-11 21:54] LABS: BASOPHIL # 0.1 10^3/ul (0.0-0.1); BASOPHILS % 0.7 % (0.0-2.0); EOSINOPHILS # 0.1 10^3/ul (0.0-0.5); EOSINOPHILS % 0.7 % (0.0-7.0); HEMATOCRIT 33.3 % (37.0-47.0); HEMOGLOBIN 11.3 g/dl (12.0-16.0); LYMPHOCYTES # 1.9 10^3/ul (0.8-2.9); LYMPHOCYTES % 16.9 % (15.0-51.0); MEAN CORPUSCULAR HEMOGLOBIN 34.3 pg (29.0-33.0); MEAN CORPUSCULAR HGB CONC 33.9 g/dl (32.0-37.0); MEAN CORPUSCULAR VOLUME 101.2 fl (82.0-101.0); MEAN PLATELET VOLUME 10.4 fl (7.4-10.4); MONOCYTE # 1.2 10^3/ul (0.3-0.9); MONOCYTES % 10.7 % (0.0-11.0); NEUTROPHILS % 70.3 % (39.0-77.0); PLATELET COUNT 248 10^3/UL (140-415); RED BLOOD COUNT 3.29 10^6/ul (4.20-5.40); RED CELL DISTRIBUTION WIDTH 13.4 % (11.5-14.5)
[2018-08-11 21:54] LABS: WHITE BLOOD COUNT 11.3 10^3/ul (4.8-10.8)
[2018-08-11 22:13] LABS: ANION GAP 13 (5-13); BLOOD UREA NITROGEN 29 mg/dl (7-20); CALCIUM 8.7 mg/dl (8.4-10.2); CARBON DIOXIDE 21 mmol/L (21-31); CHLORIDE 105 mmol/L (97-110); CREATININE 1.49 mg/dl (0.44-1.00); Estimated GFR 36 mL/min (>60); GLUCOSE 93 mg/dl (70-220); INR 0.91; POTASSIUM 4.6 mmol/L (3.5-5.1); PROTIME 12.4 Sec (11.9-14.9); SODIUM 139 mmol/L (135-144)
[2018-08-11 22:14] LABS: PARTIAL THROMBOPLASTIN TIME 27.8 Sec (23.0-35.0)
[2018-08-11 22:22] LABS: TROPONIN-I < 0.012 ng/ml (0.000-0.120)
[2018-08-11] MEDS: hydrALAzine 20 MG INJ IV (22:53)
[2018-08-11] MEDS: LORAZEPAM 2 MG INJ IV (22:53)
== END 2018-08-12 00:43 | disposition home or self-care (01) ==
LOC: E/R 08-12 00:43
DX: R11.2 Nausea with vomiting, unspecified (principal); N18.9 Chronic kidney disease, unspecified; I12.9 Hypertensive chronic kidney disease with stage 1 through stage 4 chronic kidney disease, or unspecified chronic kidney disease; R51 Headache; Z79.82 Long term (current) use of aspirin; Z86.73 Personal history of transient ischemic attack (TIA), and cerebral infarction without residual deficits
CPT/HCPCS: 36415; 70450; 71045; 80048; 84484; 85025; 85610; 85730; 93005; 96374; 96375; 99285-25

== ENCOUNTER 2018-10-02 10:00 | Emergency (ER) | payer OTHER, MEDICAID ==
[2018-10-02] MEDS: SOD CHLORIDE 0.9% 1,000 ML IV (11:06)
[2018-10-02] MEDS: ONDANSETRON 4 MG INJ IV (11:06)
[2018-10-02 11:19] LABS: ADD MAN DIFF? NO
[2018-10-02 11:25] LABS: ADD UMIC YES; BASOPHIL # 0.1 10^3/ul (0.0-0.1); BASOPHILS % 1.1 % (0.0-2.0); EOSINOPHILS # 0.2 10^3/ul (0.0-0.5); EOSINOPHILS % 1.9 % (0.0-7.0); HEMATOCRIT 28.4 % (37.0-47.0); HEMOGLOBIN 9.5 g/dl (12.0-16.0); LYMPHOCYTES # 2.3 10^3/ul (0.8-2.9); LYMPHOCYTES % 29.2 % (15.0-51.0); MEAN CORPUSCULAR HEMOGLOBIN 33.1 pg (29.0-33.0); MEAN CORPUSCULAR HGB CONC 33.5 g/dl (32.0-37.0); MEAN PLATELET VOLUME 11.4 fl (7.4-10.4); MONOCYTE # 0.7 10^3/ul (0.3-0.9); MONOCYTES % 8.8 % (0.0-11.0); NEUTROPHIL # 4.7 10^3/ul (1.6-7.5); NEUTROPHILS % 58.6 % (39.0-77.0); RED BLOOD COUNT 2.87 10^6/ul (4.20-5.40); RED CELL DISTRIBUTION WIDTH 13.3 % (11.5-14.5); UR ASCORBIC ACID NEGATIVE (NEGATIVE); UR BILIRUBIN (Dip) NEGATIVE (NEGATIVE); UR BLOOD (Dip) NEGATIVE (NEGATIVE); UR CLARITY SLIGHTLY CLOUDY (CLEAR); UR COLOR YELLOW (YELLOW); UR GLUCOSE (Dip) NEGATIVE (NEGATIVE); UR KETONES (Dip) NEGATIVE (NEGATIVE); UR LEUKOCYTE ESTERASE (Dip) 3+ Leu/ul (NEGATIVE); UR NITRITE (Dip) NEGATIVE (NEGATIVE); UR RBC 4 /HPF (0-5); UR SPECIFIC GRAVITY (Dip) 1.014 (1.003-1.030); UR SQUAMOUS EPITHELIAL CELL FEW /HPF (FEW); UR TOTAL PROTEIN (Dip) NEGATIVE (NEGATIVE); UR UROBILINOGEN (Dip) NEGATIVE (NEGATIVE); UR WBC 77 /HPF (0-5)
[2018-10-02 11:29] LABS: PLATELET COUNT 175 10^3/UL (140-415); POSITIVE DIFF @See below
[2018-10-02 11:38] LABS: ALANINE AMINOTRANSFERASE 30 IU/L (13-69); ALBUMIN 3.9 g/dl (3.3-4.9); ALBUMIN/GLOBULIN RATIO 1.21; ALKALINE PHOSPHATASE 202 IU/L (42-121); ANION GAP 11 (5-13); ASPARTATE AMINO TRANSFERASE 33 IU/L (15-46); BILIRUBIN,INDIRECT 0.2 mg/dl (0-1.1); BILIRUBIN,TOTAL 0.2 mg/dl (0.2-1.3); BLOOD UREA NITROGEN 23 mg/dl (7-20); CALCIUM 8.8 mg/dl (8.4-10.2); CARBON DIOXIDE 19 mmol/L (21-31); CHLORIDE 111 mmol/L (97-110); CREATININE 1.53 mg/dl (0.44-1.00); Estimated GFR 35 mL/min (>60); GLUCOSE 89 mg/dl (70-220); LIPASE 89 U/L (23-300); POTASSIUM 4.7 mmol/L (3.5-5.1); SODIUM 141 mmol/L (135-144); TOTAL PROTEIN 7.1 g/dl (6.1-8.1)
[2018-10-02 11:50] LABS: TROPONIN-I < 0.012 ng/ml (0.000-0.120)
== END 2018-10-02 13:18 | disposition home or self-care (01) ==
LOC: E/R 10:00
DX: E86.0 Dehydration (principal); I12.9 Hypertensive chronic kidney disease with stage 1 through stage 4 chronic kidney disease, or unspecified chronic kidney disease; N18.9 Chronic kidney disease, unspecified; K59.00 Constipation, unspecified; N30.00 Acute cystitis without hematuria; R40.2142 Coma scale, eyes open, spontaneous, at arrival to emergency department; R40.2362 Coma scale, best motor response, obeys commands, at arrival to emergency department; R40.2252 Coma scale, best verbal response, oriented, at arrival to emergency department; Z79.82 Long term (current) use of aspirin; Z86.73 Personal history of transient ischemic attack (TIA), and cerebral infarction without residual deficits
CPT/HCPCS: 36415; 71045; 74176; 80053; 81001; 83690; 84484; 85025; 93005; 96374; 99285-25

== ENCOUNTER 2018-10-09 10:32 | Inpatient (IN) | payer OTHER ==
[2018-10-09 11:55] LABS: WHITE BLOOD COUNT 20.2 10^3/ul (4.8-10.8)
[2018-10-09 11:55] LABS: ABNORMAL IP MESSAGE 1; HEMATOCRIT 31.3 % (37.0-47.0); HEMOGLOBIN 9.9 g/dl (12.0-16.0); MEAN CORPUSCULAR HEMOGLOBIN 32.8 pg (29.0-33.0); MEAN CORPUSCULAR HGB CONC 31.6 g/dl (32.0-37.0); MEAN CORPUSCULAR VOLUME 103.6 fl (82.0-101.0); MEAN PLATELET VOLUME 9.7 fl (7.4-10.4); PLATELET COUNT 187 10^3/UL (140-415); RED BLOOD COUNT 3.02 10^6/ul (4.20-5.40); RED CELL DISTRIBUTION WIDTH 13.4 % (11.5-14.5)
[2018-10-09 12:15] LABS: ALANINE AMINOTRANSFERASE 22 IU/L (13-69); ALBUMIN 3.7 g/dl (3.3-4.9); ALBUMIN/GLOBULIN RATIO 1.23; ALKALINE PHOSPHATASE 197 IU/L (42-121); ANION GAP 10 (5-13); ASPARTATE AMINO TRANSFERASE 21 IU/L (15-46); BILIRUBIN,INDIRECT 0.3 mg/dl (0-1.1); BILIRUBIN,TOTAL 0.3 mg/dl (0.2-1.3); BLOOD UREA NITROGEN 15 mg/dl (7-20); CALCIUM 8.8 mg/dl (8.4-10.2); CARBON DIOXIDE 15 mmol/L (21-31); CHLORIDE 114 mmol/L (97-110); Estimated GFR 34 mL/min (>60); GLUCOSE 90 mg/dl (70-220); POTASSIUM 4.5 mmol/L (3.5-5.1); SODIUM 139 mmol/L (135-144); TOTAL PROTEIN 6.7 g/dl (6.1-8.1)
[2018-10-09 12:19] LABS: ADD MAN DIFF? YES; POSITIVE DIFF @See below
[2018-10-09 12:22] LABS: INR 1.27; PT RATIO 1.3
[2018-10-09 12:23] LABS: ACETAMINOPHEN < 10.0 ug/ml (10.0-30.0); SALICYLATE < 1.0 mg/dl (5.0-30.0)
[2018-10-09 12:24] LABS: ETHANOL < 10.0 mg/dl (0-0)
[2018-10-09] MEDS: SODIUM CHLORIDE 0.9% 1L BAG IV* (12:40)
[2018-10-09] MEDS ORDERED: CEFEPIME 2GM/50 ML (PMX) 50 ML IVPB (12:40)
[2018-10-09] MEDS ORDERED: ACETAMINOPHEN 650MG/20.3ML CUP (12:58)
[2018-10-09 12:59] LABS: LACTIC ACID 1.6 mmol/L (0.5-2.0)
[2018-10-09] MEDS: ARIPIPRAZOLE 5 MG TAB PO (13:00)
[2018-10-09] MEDS ORDERED: VANCOMYCIN 1 GM (PMX) 250 ML IVPB (13:00)
[2018-10-09] MEDS: FAMOTIDINE 20 MG TAB PO (13:00)
[2018-10-09] MEDS: LACOSAMIDE 200 MG TABLET PO (13:00)
[2018-10-09] MEDS ORDERED: DOCUSATE SODIUM 100 MG CAP PO (13:00)
[2018-10-09] MEDS: DIVALPROEX (EC) 250 MG TAB PO ×2 (13:00→22:09)
[2018-10-09] MEDS: ASPIRIN (EC) 81 MG TAB PO (13:00)
[2018-10-09] MEDS ORDERED: ONDANSETRON 4 MG INJ IV (13:00)
[2018-10-09 13:08] LABS: BAND NEUTROPHILS % (M) 20 % (0-4); LYMPHOCYTES #M 1.6 10^3/ul (0.8-2.9); LYMPHOCYTES % (M) 8 % (15-51); MONOCYTE #M 0.6 10^3/ul (0.3-0.9); MONOCYTES % (M) 3 % (0-11); PLATELET ESTIMATE NORMAL; POIKILOCYTOSIS 2+ (0-0); POLYCHROMASIA 1+ (0-0); SEG NEUT #M 14.7 10^3/ul (1.6-7.5); SEGMENTED NEUTROPHILS (M) % 69 % (39-77); SMUDGE%M 2 % (0-0)
[2018-10-09] MEDS: SOD CHLORIDE 0.9% 1,000 ML IV ×2 (14:00→18:00)
[2018-10-09] MEDS: KETOROLAC 15 MG INJ IV (14:00)
[2018-10-09] MEDS: PIPER-TAZO 3.375 GM IV (PMX) 100 ML IVPB ×2 (14:00→22:09)
[2018-10-09] MEDS: ACETAMINOPHEN 650MG/20.3ML CUP PO (14:00)
[2018-10-09] MEDS: LABETALOL 100 MG TAB PO (21:00)
[2018-10-10] MEDS: LACOSAMIDE 200 MG TABLET PO ×3 (01:12→20:39)
[2018-10-10] MEDS: SOD CHLORIDE 0.9% 1,000 ML IV ×4 (02:20→22:26)
[2018-10-10] MEDS ORDERED: IBUPROFEN 600 MG TAB PO (04:30)
[2018-10-10 05:34] LABS: ADD MAN DIFF? NO
[2018-10-10 05:38] LABS: BASOPHIL # 0.1 10^3/ul (0.0-0.1); BASOPHILS % 0.3 % (0.0-2.0); EOSINOPHILS % 0.1 % (0.0-7.0); HEMOGLOBIN 7.9 g/dl (12.0-16.0); LYMPHOCYTES # 1.4 10^3/ul (0.8-2.9); LYMPHOCYTES % 7.5 % (15.0-51.0); MEAN CORPUSCULAR HEMOGLOBIN 33.6 pg (29.0-33.0); MEAN CORPUSCULAR HGB CONC 32.9 g/dl (32.0-37.0); MEAN CORPUSCULAR VOLUME 102.1 fl (82.0-101.0); MEAN PLATELET VOLUME 10.1 fl (7.4-10.4); MONOCYTE # 1.4 10^3/ul (0.3-0.9); MONOCYTES % 7.4 % (0.0-11.0); PLATELET COUNT 148 10^3/UL (140-415); RED BLOOD COUNT 2.35 10^6/ul (4.20-5.40); RED CELL DISTRIBUTION WIDTH 13.5 % (11.5-14.5)
[2018-10-10 05:38] LABS: WHITE BLOOD COUNT 19.1 10^3/ul (4.8-10.8)
[2018-10-10 06:13] LABS: ANION GAP 12 (5-13); BLOOD UREA NITROGEN 18 mg/dl (7-20); CALCIUM 8.1 mg/dl (8.4-10.2); CARBON DIOXIDE 11 mmol/L (21-31); CHLORIDE 116 mmol/L (97-110); Estimated GFR 36 mL/min (>60); GLUCOSE 67 mg/dl (70-220); POTASSIUM 3.4 mmol/L (3.5-5.1); SODIUM 139 mmol/L (135-144)
[2018-10-10] MEDS: PIPER-TAZO 3.375 GM IV (PMX) 100 ML IVPB (06:21)
[2018-10-10] MEDS: LEVOTHYROXINE 25 MCG TAB PO (06:21)
[2018-10-10] MEDS: ARIPIPRAZOLE 5 MG TAB PO (08:27)
[2018-10-10] MEDS: FAMOTIDINE 20 MG TAB PO (08:28)
[2018-10-10] MEDS: DIVALPROEX (EC) 250 MG TAB PO ×2 (08:28→20:39)
[2018-10-10] MEDS: AMLODIPINE 10 MG TAB PO (08:29)
[2018-10-10] MEDS: LABETALOL 100 MG TAB PO ×2 (08:29→20:40)
[2018-10-10] MEDS: ASPIRIN (EC) 81 MG TAB PO (08:34)
[2018-10-10 12:36] LABS: ADD UMIC YES; UR ASCORBIC ACID NEGATIVE (NEGATIVE); UR BILIRUBIN (Dip) NEGATIVE (NEGATIVE); UR BLOOD (Dip) 1+ mg/dL (NEGATIVE); UR CLARITY CLEAR (CLEAR); UR COLOR STRAW (YELLOW); UR GLUCOSE (Dip) NEGATIVE (NEGATIVE); UR KETONES (Dip) NEGATIVE (NEGATIVE); UR LEUKOCYTE ESTERASE (Dip) TRACE Leu/ul (NEGATIVE); UR NITRITE (Dip) NEGATIVE (NEGATIVE); UR RBC 2 /HPF (0-5); UR SPECIFIC GRAVITY (Dip) 1.004 (1.003-1.030); UR TOTAL PROTEIN (Dip) NEGATIVE (NEGATIVE); UR UROBILINOGEN (Dip) NEGATIVE (NEGATIVE); UR WBC 4 /HPF (0-5)
[2018-10-10] MEDS: MEROPENEM 1 GM/50ML(PMX) 50 ML IVPB ×2 (13:01→22:26)
[2018-10-10 13:59] LABS: AMPHETAMINE/METHAMPHETAMINE Negative (NEGATIVE); BARBITURATES Negative (NEGATIVE); BENZODIAZEPINES Negative (NEGATIVE); CANNABINOIDS Negative (NEGATIVE); COCAINE Negative (NEGATIVE); OPIATES Negative (NEGATIVE)
[2018-10-11 06:08] LABS: ABNORMAL IP MESSAGE 1; HEMATOCRIT 23.5 % (37.0-47.0); HEMOGLOBIN 7.6 g/dl (12.0-16.0); MEAN CORPUSCULAR HEMOGLOBIN 32.9 pg (29.0-33.0); MEAN CORPUSCULAR HGB CONC 32.3 g/dl (32.0-37.0); MEAN CORPUSCULAR VOLUME 101.7 fl (82.0-101.0); PLATELET COUNT 149 10^3/UL (140-415); RED BLOOD COUNT 2.31 10^6/ul (4.20-5.40); RED CELL DISTRIBUTION WIDTH 13.4 % (11.5-14.5)
[2018-10-11 06:08] LABS: WHITE BLOOD COUNT 19.4 10^3/ul (4.8-10.8)
[2018-10-11 06:10] LABS: ADD MAN DIFF? YES; POSITIVE DIFF @See below
[2018-10-11] MEDS: LEVOTHYROXINE 25 MCG TAB PO (06:14)
[2018-10-11] MEDS: MEROPENEM 1 GM/50ML(PMX) 50 ML IVPB ×2 (08:23→20:16)
[2018-10-11] MEDS: ASPIRIN (EC) 81 MG TAB PO (08:25)
[2018-10-11] MEDS: LABETALOL 100 MG TAB PO ×2 (08:25→20:16)
[2018-10-11] MEDS: FAMOTIDINE 20 MG TAB PO (08:26)
[2018-10-11] MEDS: ARIPIPRAZOLE 5 MG TAB PO (08:28)
[2018-10-11] MEDS: DIVALPROEX (EC) 250 MG TAB PO ×2 (08:30→20:16)
[2018-10-11] MEDS: AMLODIPINE 10 MG TAB PO (08:30)
[2018-10-11] MEDS: LACOSAMIDE 200 MG TABLET PO ×2 (08:31→20:16)
[2018-10-11 08:45] LABS: ANISOCYTOSIS 1+ (0-0); BAND NEUTROPHILS #M 1.5 10^3/ul (0.0-0.6); BAND NEUTROPHILS % (M) 8 % (0-4); EOSINOPHILS % (M) 2 % (0-7); GIANT THROMBO% (M) 1 % (0-0); LYMPHOCYTES #M 1.5 10^3/ul (0.8-2.9); LYMPHOCYTES % (M) 8 % (15-51); MONOCYTE #M 1.3 10^3/ul (0.3-0.9); MONOCYTES % (M) 7 % (0-11); PLATELET ESTIMATE NORMAL; POIKILOCYTOSIS 3+ (0-0); POLYCHROMASIA 3+ (0-0); SEG NEUT #M 14.8 10^3/ul (1.6-7.5); SEGMENTED NEUTROPHILS (M) % 75 % (39-77); SMUDGE%M 2 % (0-0)
[2018-10-11] MEDS: SOD CHLORIDE 0.9% 1,000 ML IV (13:08)
[2018-10-12] MEDS: SOD CHLORIDE 0.9% 1,000 ML IV ×2 (03:48→07:40)
[2018-10-12] MEDS: LEVOTHYROXINE 25 MCG TAB PO (06:05)
[2018-10-12] MEDS: MEROPENEM 1 GM/50ML(PMX) 50 ML IVPB ×2 (08:46→20:37)
[2018-10-12] MEDS: ARIPIPRAZOLE 5 MG TAB PO (08:47)
[2018-10-12] MEDS: FAMOTIDINE 20 MG TAB PO (08:48)
[2018-10-12] MEDS: LACOSAMIDE 200 MG TABLET PO ×2 (08:48→20:37)
[2018-10-12] MEDS: DIVALPROEX (EC) 250 MG TAB PO ×2 (08:48→20:37)
[2018-10-12] MEDS: AMLODIPINE 10 MG TAB PO (08:48)
[2018-10-12] MEDS: ASPIRIN (EC) 81 MG TAB PO (08:49)
[2018-10-12] MEDS: LABETALOL 100 MG TAB PO ×2 (08:49→20:37)
[2018-10-12] MEDS: ENOXAPARIN 30 MG/0.3 ML SYG SC (15:20)
[2018-10-13] MEDS ORDERED: ONDANSETRON 4 MG INJ IV (01:00)
[2018-10-13 05:44] LABS: ADD MAN DIFF? NO
[2018-10-13 05:56] LABS: WHITE BLOOD COUNT 8.1 10^3/ul (4.8-10.8)
[2018-10-13 05:56] LABS: BASOPHIL # 0.1 10^3/ul (0.0-0.1); BASOPHILS % 0.9 % (0.0-2.0); EOSINOPHILS # 0.6 10^3/ul (0.0-0.5); EOSINOPHILS % 6.9 % (0.0-7.0); HEMATOCRIT 25.1 % (37.0-47.0); HEMOGLOBIN 8.2 g/dl (12.0-16.0); LYMPHOCYTES # 2.5 10^3/ul (0.8-2.9); LYMPHOCYTES % 30.5 % (15.0-51.0); MEAN CORPUSCULAR HEMOGLOBIN 32.5 pg (29.0-33.0); MEAN CORPUSCULAR HGB CONC 32.7 g/dl (32.0-37.0); MEAN CORPUSCULAR VOLUME 99.6 fl (82.0-101.0); MEAN PLATELET VOLUME 9.7 fl (7.4-10.4); MONOCYTE # 0.9 10^3/ul (0.3-0.9); MONOCYTES % 11.6 % (0.0-11.0); NEUTROPHILS % 49.7 % (39.0-77.0); PLATELET COUNT 216 10^3/UL (140-415); RED BLOOD COUNT 2.52 10^6/ul (4.20-5.40); RED CELL DISTRIBUTION WIDTH 13.2 % (11.5-14.5)
[2018-10-13] MEDS: LEVOTHYROXINE 25 MCG TAB PO (06:07)
[2018-10-13 06:20] LABS: AMMONIA 17 umol/l (9-30)
[2018-10-13 06:22] LABS: ANION GAP 9 (5-13); BLOOD UREA NITROGEN 15 mg/dl (7-20); CALCIUM 8.7 mg/dl (8.4-10.2); CARBON DIOXIDE 16 mmol/L (21-31); CHLORIDE 118 mmol/L (97-110); Estimated GFR 47 mL/min (>60); GLUCOSE 81 mg/dl (70-220); POTASSIUM 3.3 mmol/L (3.5-5.1); SODIUM 143 mmol/L (135-144)
[2018-10-13 06:24] LABS: IRON 114 ug/dl (35-150)
[2018-10-13 06:33] LABS: % IRON SATURATION 49 % SAT (22-52); TOTAL IRON BINDING CAPACITY 235 ug/dl (241-421)
[2018-10-13] MEDS: MEROPENEM 1 GM/50ML(PMX) 50 ML IVPB (08:22)
[2018-10-13] MEDS: ARIPIPRAZOLE 5 MG TAB PO (08:22)
[2018-10-13] MEDS: LABETALOL 100 MG TAB PO (08:24)
[2018-10-13] MEDS: ENOXAPARIN 30 MG/0.3 ML SYG SC (08:24)
[2018-10-13] MEDS: AMLODIPINE 10 MG TAB PO (08:25)
[2018-10-13] MEDS: FAMOTIDINE 20 MG TAB PO (08:25)
[2018-10-13] MEDS: ASPIRIN (EC) 81 MG TAB PO (08:25)
[2018-10-13] MEDS: DIVALPROEX (EC) 250 MG TAB PO (08:25)
[2018-10-13] MEDS: LACOSAMIDE 200 MG TABLET PO (08:25)
== END 2018-10-13 18:04 | DRG 71 ==
LOC: E/R 10:32 → PP2 12:45 → 5EC 21:10
PROVIDERS: Internal Medicine
DX: G93.41 Metabolic encephalopathy (principal); Z68.1 Body mass index [BMI] 19.9 or less, adult; N17.9 Acute kidney failure, unspecified; F31.9 Bipolar disorder, unspecified; E03.9 Hypothyroidism, unspecified; Z86.73 Personal history of transient ischemic attack (TIA), and cerebral infarction without residual deficits; G40.909 Epilepsy, unspecified, not intractable, without status epilepticus; I12.9 Hypertensive chronic kidney disease with stage 1 through stage 4 chronic kidney disease, or unspecified chronic kidney disease; N18.9 Chronic kidney disease, unspecified; R50.9 Fever, unspecified; D64.9 Anemia, unspecified
CPT/HCPCS: 36415; 70450; 71045; 80048; 80053; 80307; 81001; 82140; 82962; 83540; 83605; 85025; 85610; 87040-91; 87086; 93005; 97161; 99285-25